=== PATIENT | male | born 1945 | race Caucasian/White ===

== ENCOUNTER 2019-09-11 11:49 | Observation (INO) | payer MEDICARE, OTHER, SELFPAY ==
[2019-09-11] VITALS (7 sets, daily range): BP systolic 115–185; BP diastolic 69–94; PULSE 74–104; RESP 15–18; TEMP 36.5–36.8; O2SAT 93–98; BMI 36.8
--- NOTE | 2019-09-11 12:12 | ED_ITS ---
HPI - Neuro Symptoms/Deficit General Chief Complaint: Neuro Symptoms/Deficit Stated Complaint: Blurry Vision, Left Side Facial and Hand Numbness Time Seen by Provider: 09/11/19 12:12 Source: patient Mode of arrival: Ambulatory Limitations: no limitations History of Present Illness HPI Narrative: 74-year-old gentleman with chronic atrial fibrillation anticoagulated on apixaban who is had a bypass surgery a number of years ago presents with 3 days of waxing and waning left facial and upper extremity weakness and numbness with left peripheral vision slightly blurry. No fever, cough, cold, chills, chest pain, dyspnea, orthopnea, headache, neurologic changes, falls or trauma. On Anticoagulants: Yes (eliquis) Related Data Home Medications Medication Instructions Recorded Confirmed ASPIRIN (#ASPIRIN) 325 mg PO Q DAY #0 11/07/10 apixaban [Eliquis] #0 07/07/16 Allergies Allergy/AdvReac Type Severity Reaction Status Date / Time No Known Drug Allergies Allergy Verified 09/11/19 12:34 Review of Systems Review of Systems Narrative: No vomiting, diarrhea, abdominal pain All systems reviewed and are unremarkable except as noted in HPI and below Patient History Surgical History (Updated 09/11/19 @ 12:21 by Hawa Diez MD) Hx of CABG (Acute) Social History Smoking Status: Former smoker Smoking Status: Former smoker Substance Use Type: does not use Exam Narrative Exam Narrative: General: Healthy appearing, in no acute distress. Able to give a complete and coherent history. Well-nourished well-developed HEENT: Moist mucous membranes, normal sclera with reactive pupils, Neck: No JVD, supple Respiratory: Lungs are clear to auscultation, no wheezing no rales no rhonchi. Full and symmetrical air movement Cardiac: Regular rate and rhythm no murmurs no bruits Abdomen: Soft nontender good bowel tones, no flank pain Skin: Warm and dry, no rashes Neurologic: Grossly neurologically intact with no obvious asymmetries or abnormalities at this time. Mild left-sided hemianopia blurriness Extremities: No trauma, well perfused Psych: Cooperative, appropriate insight and affect Initial Vital Signs Initial Vital Signs: Vital Signs Pulse Rate 104 H 09/11/19 12:00 Respiratory Rate 18 09/11/19 12:00 Blood Pressure 154/88 H 09/11/19 12:00 Pulse Oximetry 93 09/11/19 12:00 Course Orders Ordered: ED Orders 09/11/19 12:10 Complete Blood Count AUTO DIFF Stat Comprehensive Metabolic Panel Stat Partial Thromboplastin Time Stat Prothrombin Time INR Stat EKG-12 Lead Stat 09/11/19 12:23 CT Stroke Stat Sodium Chloride (Normal Saline 0.9%) 1,000 mls @ 150 mls/hr IV CONT RONEY Last Admin: 09/11/19 12:32 Dose: 150 mls/hr Documented by: INGA Vital Signs Vital signs: Vital Signs - 8 hr 09/11/19 12:00 09/11/19 12:09 Temperature 98.3 F Pulse Rate 104 H Respiratory Rate 18 Blood Pressure 154/88 H Pulse Oximetry 93 MDM - Neuro Symptoms/Deficit Medical Records Attestation: I reviewed the patient's medical records. Lab Data Attestation: I reviewed the patient's lab results. Result diagrams: 09/11/19 12:10 09/11/19 12:10 Labs: Lab Results 09/11/19 09/11/19 09/11/19 Range/Units 12:10 12:10 12:10 WBC 6.8 (4.5-11.0) X10^3/uL RBC 4.98 (4.5-5.9) X10^6/uL Hgb 14.9 (13.5-17.5) g/dL Hct 44.9 (41-53) % MCV 90.0 (80-100) fL MCH 29.9 (26-34) PG MCHC 33.2 (30-36) % RDW 15.6 H (11.6-14.8) % Plt Count 202 (150-400) X10^3/uL Neut % (Auto) 71.9 (50-75) % Lymph % (Auto) 15.3 L (25-40) % [place] % (Auto) 9.8 (3-14) % Eos % (Auto) 2.2 (2-4) % Baso % (Auto) 0.8 (0-2) % Neut # (Auto) 4900 (1470-6895) /uL Lymph # (Auto) 1000 L (0107-0301) /uL [place] # (Auto) 700 (0-900) /uL Eos # (Auto) 200 (0-450) /uL Baso # (Auto) 100 (0-100) /uL PT 14.3 H (10.1-12.7) SECONDS INR 1.3 (0.9-1.3) APTT 35 (26.4-36.2) SECONDS Sodium 140 (137-145) mmol/L Potassium 4.1 (3.4-5.1) mmol/L Chloride 104 (98-107) mmol/L Carbon Dioxide 25 (22-32) mmol/L BUN 24 H (9-20) mg/dL Creatinine 1.00 (0.66-1.25) mg/dL Estimated GFR > 60.0 (>60) mL/min BUN/Creatinine Ratio 24.0 H (6-22) Glucose 109 (80-110) mg/dL Calcium 10.0 (8.4-10.2) mg/dL Total Bilirubin 0.5 (0.2-1.3) mg/dL AST 38 (17-59) IU/L ALT 34 (<50) IU/L Alkaline Phosphatase 51 (38-126) U/L Total Protein 8.5 H (6.3-8.2) g/dL Albumin 4.9 (3.5-5.0) g/dL Globulin 3.6 (1.7-4.1) g/dL Albumin/Globulin Ratio 1.4 (1.0-2.8) Imaging Data CT scan - head: Radiologist's Impression: IMPRESSION: 1. Focal hypodense region within the occipital lobe which may represent a subacute or early chronic infarct. If further characterization is warranted, noncontrast MRI could be used to evaluate for increased restricted diffusion. 2. No other acute intracranial findings. 3. Findings likely associated with chronic microvascular ischemic changes and old lacunar infarcts. 4. Fluid filled mastoid air cells which may be associated with mastoiditis. This study fulfills neurological imaging criteria for inclusion or exclusion of acute stroke therapies based on available published neurological guidelines. Dictated by: Pati Carrillo M.D. on 09/11/2019 at 11:51 ECG Data Attestation: I personally reviewed and interpreted this ECG as follows: Interpretation: Atrial fibrillation at a rate of 75 Left axis deviation Q-waves inferiorly suggesting a prior infarct with no acute ischemic changes MDM Narrative Medical decision making narrative: 3-4 days of intermittent symptoms seeming like they are progressively getting worse which is what prompted his visit today. He had an episode this morning of significant left-sided facial numbness left arm numbness and mild weakness. Symptoms have but not involved speech nor lower extremities. He denies previous stroke or heart attack. Clearly has significant atherosclerotic disease if he has had bypass grafting previously 1317 case is reviewed with Dr. Ashley, hospitalist. Patient will be admitted for a occipital stroke involving. As he currently is on Eliquis and date of onset is not completely clear he is not a tPA candidate. We discussed CT a verses waiting till tomorrow to do an MR. Given the fact that his clinical exam does not suggest an acute large vessel occlusion will hold off on the CT a to avoid the excess radiation and wait for the MRI study tomorrow. Discharge Plan Departure Patient Disposition: Admitted As Inpatient Clinical Impression: Stroke Qualifiers: CVA mechanism: embolism Precerebral and cerebral artery: unspecified cerebral artery Qualified Code(s): I63.40 - Cerebral infarction due to embolism of unspecified cerebral artery Discharge Date/Time: 09/11/19 13:34 Referrals: Duke Russell MD [Primary Care Provider] - Admit Date/Time: 09/11/19 13:33 Admit Provider: Deb Ashley
--- NOTE | 2019-09-11 12:23 | DI.CT.S_ITS ---
PROCEDURE: CT STROKE INDICATIONS: Three days stuttering stroke symptoms, left-sided weakness TECHNIQUE: Noncontrast 4.5 mm thick angled axial sections acquired from the foramen magnum to the vertex, with coronal reformats. For radiation dose reduction, the following was used: automated exposure control, adjustment of mA and/or kV according to patient size. COMPARISON: None. FINDINGS: Image quality: Excellent. CSF spaces: Basal cisterns are patent. No extra-axial fluid collections. The ventricles are symmetric in size and shape. Brain: No intracranial bleeds or masses. There is cerebral volume loss for age, with resultant ventricular and sulcal prominence. There are periventricular and deep white matter chronic small vessel ischemic changes. A focal 11 mm hypodensity is present within the right occipital lobe (series 2/image 18). There is intracranial internal carotid artery atherosclerosis. Probable chronic appearing lacunar infarcts are present within the bilateral external capsules of the basal ganglia. Differential considerations include prominent perivascular spaces. Skull and face: Calvarium and visualized facial bones appear intact, without suspicious lesions. An arachnoid cyst is present within the right frontal bone. Sinuses: Mucosal thickening is present within the bilateral ethmoid air cells. Visualized sinuses are otherwise clear. Fluid is present within the bilateral mastoid air cells. IMPRESSION: 1. Focal hypodense region within the occipital lobe which may represent a subacute or early chronic infarct. If further characterization is warranted, noncontrast MRI could be used to evaluate for increased restricted diffusion. 2. No other acute intracranial findings. 3. Findings likely associated with chronic microvascular ischemic changes and old lacunar infarcts. 4. Fluid filled mastoid air cells which may be associated with mastoiditis. This study fulfills neurological imaging criteria for inclusion or exclusion of acute stroke therapies based on available published neurological guidelines. Dictated by: Pati Carrillo M.D. on 09/11/2019 at 11:51 Approved by: Pati Carrillo M.D. on 09/11/2019 at 11:56
[2019-09-11] MEDS: SODIUM CHLORIDE 0.9% 1,000 ML 150 ML IV ×2 (12:32→22:47)
[2019-09-11 12:44] LABS: Add Manual Diff / Slide Review NO; Basophils Absolute Auto 100 /uL (0-100); Basophils Percent Auto 0.8 % (0-2); Eosinophils Absolute Auto 200 /uL (0-450); Eosinophils Percent Auto 2.2 % (2-4); Hematocrit 44.9 % (41-53); Hemoglobin 14.9 g/dL (13.5-17.5); Lymphocytes Absolute Auto 1000 /uL (1100-4500); Lymphocytes Percent Auto 15.3 % (25-40); Mean Corpuscular HGB Conc 33.2 % (30-36); Mean Corpuscular Hemoglobin 29.9 PG (26-34); Monocytes Absolute Auto 700 /uL (0-900); Monocytes Percent Auto 9.8 % (3-14); Neutrophils Absolute Auto 4900 /uL (1500-7000); Neutrophils Percent Auto 71.9 % (50-75); Platelet Count 202 X10^3/uL (150-400); Red Blood Cell Count 4.98 X10^6/uL (4.5-5.9); Red Cell Distribution Width 15.6 % (11.6-14.8); White Blood Cell Count 6.8 X10^3/uL (4.5-11.0)
[2019-09-11 12:51] LABS: INR 1.3 (0.9-1.3); Prothrombin Time 14.3 SECONDS (10.1-12.7)
[2019-09-11 12:54] LABS: PTT Partial Thromboplastin Tim 35 SECONDS (26.4-36.2)
[2019-09-11 12:55] LABS: Alanine Aminotransferase 34 IU/L (<50); Albumin 4.9 g/dL (3.5-5.0); Albumin Globulin Ratio 1.4 (1.0-2.8); Alkaline Phosphatase 51 U/L (38-126); Aspartate Aminotransferase 38 IU/L (17-59); Bilirubin Total 0.5 mg/dL (0.2-1.3); Blood Urea Nitrogen 24 mg/dL (9-20); Carbon Dioxide 25 mmol/L (22-32); Chloride 104 mmol/L (98-107); Estimated Glomerular Filt Rate > 60.0 mL/min (>60); Globulin 3.6 g/dL (1.7-4.1); Glucose 109 mg/dL (80-110); HEMOLYSIS < 15 (0-50); Potassium 4.1 mmol/L (3.4-5.1); Sodium 140 mmol/L (137-145); Total Protein 8.5 g/dL (6.3-8.2)
--- NOTE | 2019-09-11 18:00 | PM.HP.1 ---
History of Present Illness History of Present Illness Date Patient Seen: 09/11/19 Time Patient Seen: 16:15 Chief complaint: Blurry Vision, Left Side Facial and Hand Numbness Narrative: Vasyl Starkey is a 74-year-old male who presented with a several-day history of visual changes in his left eye, facial numbness, weakness in his left arm with numbing of his fingers in his left arm, and dizziness. He states he 1st noticed it when he was assembling his gun that he could not see very well with his left eye. He did state that when he bev he became a little bit dizzy. He denies chest pain, shortness of breath, nausea, dysuria, or nausea or vomiting. Patient History Medical History (Updated 09/11/19 @ 18:07 by WOODY Richey) A-fib (Chronic) Anticoagulation adequate with anticoagulant therapy (Chronic) Atrial fibrillation, permanent (Chronic) Essential hypertension (Acute) Gout (Chronic) Hyperlipidemia (Chronic) Stroke (Acute) Surgical History Hx of CABG (Acute) Family & Social History Family History Sister CVA (cerebral vascular accident) Mother Cancer Father Myocardial infarction Brother Myocardial infarction Social History: household members spouse Prior Living Arrangements House Safety & Behavioral: Feels Safe in Current Yes Environment Been Physically Hurt or No Threatened By a Person Suicidal Ideation Description None Suicide Plan Description No Plan Tobacco & Substance use: Smoking Status Former smoker, quit 40 years ago alcohol intake never, quit 4 months ago Substance Use Type does not use Meds Home Medications and Allergies Home Medications Medication Instructions Recorded Confirmed Type allopurinol 300 mg PO DAILY 09/11/19 09/11/19 History apixaban [Eliquis] 5 mg PO BID 09/11/19 09/11/19 History atorvastatin 40 mg PO BEDTIME 09/11/19 09/11/19 History furosemide 20 mg PO 2XW 09/11/19 09/11/19 History metoprolol tartrate 25 mg PO BID 09/11/19 09/11/19 History fsbeymml-iuq-TZ-lycopen-lutein 1 tab PO DAILY 09/11/19 09/11/19 History [Centrum Silver Ultra Men's] ramipril 10 mg PO BID 09/11/19 09/11/19 History Allergies Allergy/AdvReac Type Severity Reaction Status Date / Time No Known Drug Allergies Allergy Verified 09/11/19 12:34 Review of Systems Review of Systems ROS: Yes All systems reviewed with the patient and are negative except as otherwise documented Exam Vital Signs (past 8 hours): - 09/11/19 12:00 09/11/19 12:09 09/11/19 13:40 Temperature 98.3 F Pulse Rate 104 H 74 Respiratory Rate 18 Blood Pressure 154/88 H Blood Pressure [Right Arm] 185/94 H Pulse Oximetry 93 97 09/11/19 15:55 Temperature 97.9 F Pulse Rate 77 Respiratory Rate 18 Blood Pressure 151/69 H Blood Pressure [Right Arm] Pulse Oximetry 98 Oxygen Delivery Method Room Air Narrative Exam Narrative: Gen: Alert, oriented, obese 74 y.o. male, sitting on the side of the bed HEENT: normocephalic, atraumatic, conjunctiva clear, sclera non-icteric, oral mucosa pink and moist Neck: supple, full ROM Resp: Lungs CTA, non-labored breathing CV: RRR, no murmur or rubs Abd: soft, non-tender, normoactive BTs Skin: no lesions or rashes, dry and intact Neuro: CN 2 through 11 normal and bilateral, Romberg negative Alert and oriented X 4 Extremities: moves all 4 extremities, is ambulatory, negative Pierre?s sign Psyche: normal mood and affect. Objective Labs Result Diagrams: 09/11/19 12:10 09/11/19 12:10 Labs: Laboratory Results - last 24 hr 09/11/19 09/11/19 09/11/19 12:10 12:10 12:10 WBC 6.8 RBC 4.98 Hgb 14.9 Hct 44.9 MCV 90.0 MCH 29.9 MCHC 33.2 RDW 15.6 H Plt Count 202 Neut % (Auto) 71.9 Lymph % (Auto) 15.3 L [place] % (Auto) 9.8 Eos % (Auto) 2.2 Baso % (Auto) 0.8 Neut # (Auto) 4900 Lymph # (Auto) 1000 L [place] # (Auto) 700 Eos # (Auto) 200 Baso # (Auto) 100 PT 14.3 H INR 1.3 APTT 35 Sodium 140 Potassium 4.1 Chloride 104 Carbon Dioxide 25 BUN 24 H Creatinine 1.00 Estimated GFR > 60.0 BUN/Creatinine Ratio 24.0 H Glucose 109 Calcium 10.0 Total Bilirubin 0.5 AST 38 ALT 34 Alkaline Phosphatase 51 Total Protein 8.5 H Albumin 4.9 Globulin 3.6 Albumin/Globulin Ratio 1.4 Assessment & Plan Assessment & Plan narrative: Vasyl Starkey does have an abnormality of his head CT indicating a hyperdensity of the right occipital lobe and atherosclerosis of his carotid. Patient will be monitored overnight and will undergo an MR/MRA of the head and neck. 1. Probable right occipital CVA -nursing swallow evaluation -neuro checks q.4 hours -cardiac telemetry -PT/OT evaluate and treat 2. Chronic atrial fibrillation likely permanent -continue home dose of apixaban 5 mg p.o. b.i.d. -ECG indicates right bundle branch block, atrial fibrillation. Unknown if RBBB is new however given past history of a CABG assuming this is a permanent finding. -Dr. Milan is his delivery aide and should be notified of his admission in the morning. 3. Essential hypertension with a current blood pressure of 151/69 -patient states he takes atenolol 50 mg p.o. b.i.d. however his med record indicates he is taking metoprolol 25 mg b.i.d.. This will need to be clarified with pharmacy in the morning. -he is written for labetalol 10 mg IV for SBP greater than 220, DBP greater than 120, and heart rate greater than 100 to allow for permissive hypertension to perfuse his brain. 4. Hyperlipidemia -continue home dose of atorvastatin 40 mg p.o. daily -fasting lipid panel in the morning FEN: IV saline line, cardiac diet, chemistries in the am Patient is placed into observation as his stay is not likely to exceed 2 midnights. VTE Prophylaxis: Patient will be maintained on his normal anticoagulation regimen Medications reconciled: Yes, beta-hilary will need to be clarified and confirmed with pharmacy in the morning Disposition: Probable discharge to home with outpatient follow-up Code Status: Full code Quality VTE Deep Vein Thrombosis/Pulmonary Embolism Present on Admission: No
--- NOTE | 2019-09-11 20:42 | DI.MRI.S_ITS ---
PROCEDURE: MR STROKE Pre- and post-contrast brain MRI, non-contrast brain MR angiogram, pre- and postcontrast neck MR angiogram INDICATIONS: Left-sided weakness. stroke TECHNIQUE: Brain: Noncontrast axial T1 spin echo, axial T2 fast spin echo, sagittal and axial FLAIR, coronal T2 fast spin echo, axial gradient echo, axial diffusion and ADC through the brain. After the administration of contrast, axial 3D VIBE of the cranial vasculature and brain. Brain MRA: Non-contrast 3-D time of flight MR angiogram, with multiple dnwifpg-ueddsoiel-jzwodqypcz (MIP) reformats performed. Neck MRA: Axial and sagittal TruFISP through the neck. Coronal dynamic MR angiogram during administration of contrast in the arterial and venous phases, with 3-dimenstional mmlhneu-pucitnzzd-oykzmsbfbc (MIP) reformats constructed from subtraction images. COMPARISON: [facility], CT, CT STROKE, 09/11/2019, 11:37. FINDINGS: Image quality: Limited by patient motion artifact. BRAIN: CSF spaces: Ventricles are normal in size and shape. Basal cisterns are patent. No extra-axial fluid collections. Brain: No intracranial bleeds or mass effects. Bob-white matter interface is normal. Restricted effusion and increased T2 signal noted in the right occipital lobe compatible with acute/subacute infarct. Brainstem appears normal. Normal intravascular flow voids are present. Dural sinuses demonstrate normal postcontrast enhancement. A few, scattered punctate foci of susceptibility artifact noted the cerebral hemispheres bilaterally which may represent sequela of remote hypertensive micro-bleeds versus amyloid angiopathy. No abnormal intracranial enhancement. Skull and face: Calvarial marrow signal is normal. Orbits appear normal. Sinuses: Mucosal thickening is noted in the frontal sinuses, the ethmoid air cells and the right maxillary sinus. Fluid signal noted in the mastoid air cells bilaterally. BRAIN MR ANGIOGRAM: Anterior circulation: Intracranial internal carotid arteries are normal in size and enhancement. The flow within the paired anterior cerebral arteries is normal and symmetric. The flow within the middle cerebral arteries is normal and symmetric. The anterior communicating artery is seen. No stenoses, occlusions, or aneurysms. Posterior circulation: Normal flow noted in the intracranial left vertebral artery. There is diminished flow in the intracranial right vertebral artery. Normal flow noted in the basilar artery. The flow within the posterior cerebral arteries is normal and symmetric. No stenoses, occlusions, or aneurysms. NECK MR ANGIOGRAM: Carotids: Great vessels demonstrate a bovine variant anatomy as they arise from the aortic arch. The origins of the common carotid arteries appear patent. The calibers and courses of both common carotid arteries are normal. Mild atherosclerotic irregularity noted in the proximal internal carotid arteries bilaterally which causes less than 50% stenosis of the vessels. Posterior circulation: Dr. cagle irregularity is noted in the origin of the right vertebral artery which causes high grade stenosis to near occlusion. There is diminished flow in the right vertebral artery distal to the origin of the vessel. Mild atherosclerotic irregularity causing mild stenosis of the origin of the left vertebral artery. Left vertebral artery is fully patent distal to the mild origin stenosis. Miscellaneous: Subclavian arteries appear patent. Pre-contrast images through the neck show no soft tissue abnormalities. IMPRESSION: BRAIN MRI: 1. Acute/subacute right occipital lobe infarct. 2. Mild diffuse cerebral volume loss. 4. No abnormal intracranial mass or suspicious postcontrast enhancement. BRAIN MR ANGIOGRAM: 1. Severely diminished to flow in the intracranial V4 segment of the right vertebral artery which could be due to severe atherosclerotic disease versus thrombus. 2. Otherwise, normal MR angiogram of the head. NECK MR ANGIOGRAM: 1. Less than 50% stenosis of the proximal internal carotid arteries bilaterally. 2. High-grade stenosis near occlusion of the origin of the right vertebral artery was very diminished flow distal to the origin stenosis. 3. Mild atherosclerotic stenosis of the origin of the left vertebral artery. Dictated by: Radha Lay MD, PhD on 09/12/2019 at 10:42 Approved by: Radha Lay MD, PhD on 09/12/2019 at 10:54
--- NOTE | 2019-09-11 20:43 | DI.ECHO.S_ITS ---
[facility] +---------+ : : [address] : [place] : : : : [id number] : : : : Phone: [phone] Echocardiogram Report + + :Name: SCOTT RAZA Study Date: 09/12/2019 Height: 67 in : :[facility] Weight: 235 lb : : Gender: Male BSA: 2.2 m2 : :: 1945 Age: 74 yrs BP: 138/80 mmHg: :Reason For Study: STROKE : :Ordering Physician: Bony : :Hospitalist Performed By: Adalgisa Fregoso : :Referring: SCOTT WATSON : + + Interpretation Summary Technically difficult study. The patient was in atrial fibrillation with heart rates between 82-101 bpm during the exam. Mild concentric left ventricular hypertrophy with ejection fraction 55-60%. Moderate biatrial enlargement. Mild aortic stenosis. Mild mitral annular calcification. Mild mitral regurgitation. Mildly enlarged ascending aorta. Comparison is made with the echocardiogram of 06/17/2016, aortic stenosis has progressed. Procedure: A two-dimensional transthoracic echocardiogram with color flow and Doppler was performed. The study quality was technically difficult. A contrast injection of Definity was performed to improve assessment of LV function. Comparison is made with the echocardiogram of 06/17/2016. Definity contrast was used after patient education and consent. Patient denied any symptoms after the use of Definity contrast. The patient was in atrial fibrillation with heart rates between 82-101 bpm during the exam. Left Ventricle: The left ventricle is normal in size. There is mild concentric left ventricular hypertrophy. The ejection fraction is estimated to be 55-60%. There are no obvious focal wall motion abnormalities noted but poor endocardial definition reduces the sensitivity for the detection of such. Diastolic function could not be accurately assessed due to atrial fibrillation. Right Ventricle: The right ventricle is normal in size and function. Atria: There is moderate biatrial enlargement. There is no Doppler evidence for an interatrial shunt. Mitral Valve: There is mild mitral annular calcification. The mitral valve leaflets appear mildly thickened, but open well. There is mild mitral regurgitation. Aortic Valve: The aortic valve is trileaflet. The aortic valve is mildly calcified. There is mild aortic stenosis. No aortic regurgitation is present. Tricuspid Valve: The tricuspid valve is not well visualized, but is grossly normal. There is a trace or physiologic amount of tricuspid regurgitation. Pulmonary artery pressures cannot be estimated because of the lack of a measurable TR jet velocity but the IVC suggests a CVP of around 3 mmHg. Pulmonic Valve: The pulmonic valve is not well seen, but is grossly normal. There is no pulmonic valvular regurgitation. Great Vessels: The aortic root is normal size. The ascending aorta is mildly enlarged. The IVC is of normal diameter and collapses greater than 50% with a sniff. This suggests a low right atrial pressure of 3 mm Hg. Pericardium/ Pleura There is no pericardial effusion. There is no pleural effusion. MMode/2D Measurements & Calculations LVIDd: 5.0 cm LVOT diam: 2.6 cm LVIDs: 3.7 cm Ao root diam: 3.2 cm FS: 26.2 % asc Aorta Diam: 3.5 cm EPSS: 1.5 cm Ao Arch Diam (Prox Trans): 2.8 cm IVSd: 1.1 cm LVPWd: 1.3 cm LV nunes. diameter/BSA (cm/m^2): 2.3 LV sys. diameter/BSA (cm/m^2): 1.7 LA A2 area: 27.9 cm2 RA long axis: 6.9 cm LA A4 area: 29.5 cm2 RA area: 29.4 cm2 LA length (vol): 7.2 cm RA vol: 107.0 ml LA vol: 97.1 ml RA : 49.4 ml/m2 LA vol index: 44.8 ml/m2 IVC diam: 0.93 cm RVD1 (basal): 3.1 cm TAPSE: 2.0 cm Doppler Measurements & Calculations Ao V2 max: 219.4 cm/sec LVOT Max Anthony: 91.1 cm/sec Ao V2 mean: 158.9 cm/sec LV V1 max P.3 mmHg Ao max P.3 mmHg LV V1 VTI: 15.8 cm Ao mean P.1 mmHg JOSE(I,D): 2.1 cm2 Ao V2 VTI: 40.6 cm JOSE(V,D): 2.2 cm2 sev ratio: 0.39 JOSE indexed to BSA (cm^2/m^2): 0.96 MV E max anthony: 129.7 cm/sec PA V2 max: 106.1 cm/sec MV A max anthony: 1.9 cm/sec PA V2 mean: 76.2 cm/sec MV E/A: 67.0 PA mean P.5 mmHg Med Peak E' Anthony: 6.2 cm/sec PA Accel Time: 0.05 sec E/E' med: 20.9 Lat Peak E' Anthony: 11.1 cm/sec E/E' lat: 11.7 E/e' average: 16.3 MV dec time: 0.18 sec MV P1/2t: 49.0 msec MV 2t max anthony: 137.9 cm/sec SV(LVOT): 84.4 ml MVA(2t): 4.5 cm2 Electronically signed by: Sun Guy on Reading Physician:09/12/2019 03:17 PM
[2019-09-11] MEDS: ATORVASTATIN 20 MG TABLET 40 MG PO (22:09)
[2019-09-11] MEDS: APIXABAN 5 MG TABLET PO (22:09)
[2019-09-12 00:05] VITALS: BP 138/80; PULSE 69; RESP 18; TEMP 36.5; O2SAT 97
[2019-09-12 05:00] VITALS: BP 146/87; PULSE 76; RESP 16; TEMP 36.2; O2SAT 97
[2019-09-12 06:16] LABS: Add Manual Diff / Slide Review NO; Basophils Absolute Auto 0 /uL (0-100); Basophils Percent Auto 0.6 % (0-2); Eosinophils Absolute Auto 300 /uL (0-450); Eosinophils Percent Auto 4.1 % (2-4); Hematocrit 40.5 % (41-53); Hemoglobin 13.3 g/dL (13.5-17.5); Lymphocytes Absolute Auto 1400 /uL (1100-4500); Lymphocytes Percent Auto 22.6 % (25-40); Mean Corpuscular HGB Conc 32.9 % (30-36); Mean Corpuscular Hemoglobin 29.5 PG (26-34); Mean Corpuscular Volume 89.7 fL (80-100); Monocytes Absolute Auto 700 /uL (0-900); Monocytes Percent Auto 11.5 % (3-14); Neutrophils Absolute Auto 3700 /uL (1500-7000); Neutrophils Percent Auto 61.2 % (50-75); Platelet Count 165 X10^3/uL (150-400); Red Blood Cell Count 4.51 X10^6/uL (4.5-5.9); Red Cell Distribution Width 15.8 % (11.6-14.8); White Blood Cell Count 6.1 X10^3/uL (4.5-11.0)
[2019-09-12 06:27] LABS: BUN Creatinine Ratio 17.8 (6-22); Blood Urea Nitrogen 16 mg/dL (9-20); Calcium 9.1 mg/dL (8.4-10.2); Carbon Dioxide 23 mmol/L (22-32); Chloride 108 mmol/L (98-107); Cholesterol 120 mg/dL (140-199); Estimated Glomerular Filt Rate > 60.0 mL/min (>60); Glucose 108 mg/dL (80-110); HDL Cholesterol 42 mg/dL (40-60); HEMOLYSIS < 15 (0-50); LDL Cholesterol Calculated 60 mg/dL (<100); Potassium 3.9 mmol/L (3.4-5.1); Sodium 139 mmol/L (137-145); Triglycerides 89 mg/dL (35-150)
--- NOTE | 2019-09-12 06:51 | PC.NURSE ---
Patient has NIH of 0 on this shift. Patient VSS, patient on tele: Afib w/ BBB. Patient Neuro checks WNL. Patient is TELLER. Bed is low and locked, call light within reach, refused SCD's and bed alarm activated.
[2019-09-12 07:39] VITALS: O2SAT 98
[2019-09-12 07:40] VITALS: BP 152/97; PULSE 96; RESP 18; TEMP 36.3; O2SAT 98
[2019-09-12] MEDS: APIXABAN 5 MG TABLET PO (08:04)
[2019-09-12] MEDS: ramipriL 5 MG CAPSULE 10 MG PO (08:04)
--- NOTE | 2019-09-12 08:12 | PC.NURSE ---
Addendum entered by Marlen Willoughby R.N. 09/12/19 13:28: Spoke with Dr Mckenna (who states he will be the one coming back to see patient), informed him that MRI and ECHO have both been completed. Addendum entered by Marlen Willoughby R.N. 09/12/19 12:17: ECHO being done at this time. Plan to alert Dr Ashley when all imaging results available. Addendum entered by Marlen Willoughby R.N. 09/12/19 11:29: Has been cleared by PT to ambulate independently Addendum entered by Marlen Willoughby R.N. 09/12/19 11:26: Back to room from MRI. OT in for eval at this time. Anticipate ECHO any time now, will replace tele after ECHO. Addendum entered by Marlen Willoughby R.N. 09/12/19 10:44: Off floor to MRI at 1035, taken via wheelchair. Addendum entered by Marlen Willoughby R.N. 09/12/19 09:29: Per DI: MRI approx 1030 today, ECHO approx 1100 (subject to change of course). Informed patient of the same. SENIOR PROGRAMMER in for stroke protocol eval. at this time. Original Note: Shift summary: Awake and alert, oriented X3. Denies paresthesias, chest pain/palpitations or SOB. NIH score=0. Neuro checks WNL. Speech clear. Vision and hearing difficulties patient reports not new, does not have glasses or hearing aids. VSS. Lungs CTA. HR irregular, A-fib per tele reading. Patient at edge of bed awaiting breakfast, kind of anxious to go home. Able to make needs known and calls appropriately. Light and belongings within reach, bed alarm on.
--- NOTE | 2019-09-12 08:53 | CM.DANOTE ---
DCP: Case received, EMR reviewed and met with patient. Introduced self and role. Was able to meet with patient in his room to obtain information regarding baseline activity, health, and living situation. DCP assessment completed with information currently available. Patient is a 74 year old male who admitted yesterday afternoon to the care of the hospitalist team. PCP: Dr. Russell. Payer: confirmed: Medicare/[employer]. Patient came to the hospital via private vehicle secondary to left sided facial numbness, blurry vision, and tingling to left hand. Patient holds diagnosis of possible right occipital CVA, but will be having an MRI to confirm this as well. Met with patient in his room. He had been sitting up on the side of his bed talking on the phone, and finished his breakfast. Patient is alert and oriented. He stated that he had numbness in his hand, and had been feeling dizzy for the past couple of days. Confirmed that patient is independent, drives at baseline, and uses no DME supplies. He resides in [place] with his spouse, Saskia. Patient is wanting to go home as soon as he can. He is to be having an MRI today. P: DCP to continue to follow closely. Patient should be able to go home when he is medically stable and testing is complete. Kaycee Dykes RN/Smoke Eater
--- NOTE | 2019-09-12 10:33 | ST.IPSLE ---
Visit Care Team Role Provider Type Duke Russell MD Primary Care Provider Physician Specialty: Internal Medicine Address: [address] [place] [address], [id number] Email: [email or web address] Hawa Diez MD Emergency Provider Physician Specialty: Emergency Medicine Address: [address] [place] [address], [id number] Email: Deb Ashley MD Admit Provider Physician Attending Provider Referring Provider Specialty: Internal Medicine Address: [address] [place] [address], [id number] Email: [email or web address] Past Medical History (Last Updated 09/11/19 @ 18:07 by WOODY Richey) A-fib (Chronic Medical) Anticoagulation adequate with anticoagulant therapy (Chronic Medical) Atrial fibrillation, permanent (Chronic Medical) Essential hypertension (Acute Medical) Gout (Chronic Medical) Hyperlipidemia (Chronic Medical) Stroke (Acute Medical) Speech-Language Pathology Speech/Language Eval PRIME MINISTER Language Evaluation Start: 09/12/19 09:46 Freq: Status: Active Protocol: Document 09/12/19 09:51 LL (Rec: 09/12/19 10:32 LL [id number]) Language Evaluation Session Time Visit Start Time 09:20 Visit Stop Time 09:35 Total Visit Minutes 15 Referral Referring Physician WOODY Richey Reason for Referral Stroke Language Evaluation Assessment Type Comprehensive Speech-Language Evaluation Past Medical History Patient History Per Rosalie MaciassWOODY report, patient is a 74-year-old male who presented with a several- day history of visual changes in his left eye, facial numbness, weakness in his left arm with numbing of his fingers in his left arm, and dizziness. He states he 1st noticed it when he was assembling his gun that he could not see very well with his left eye. A-fib (Chronic) Anticoagulation adequate with anticoagulant therapy (Chronic ) Atrial fibrillation, permanent (Chronic) Essential hypertension (Acute) Gout (Chronic) Hyperlipidemia (Chronic) Stroke (Acute) Hearing Hearing Level Normal Vision Vision Status Impaired Comments Visual changes in his left eye - improving; wears glasses [place] Language Language(s) Spoken in the Home Hebrew Occupational Status Occupation Status Retired Oral Motor Examination Oral Motor Exam Completed Yes Results Patient presented within normal limits on oral mechanism examination. Patient wears full dentures/implants and reported no difficulty eating or communicating with dentures/implants in. Patient' s nurseMarlen reported no swallowing difficulties. Patient is currently on a heart healthy/cardiac diet with thin liquids. Patient reported that he had eggs, coffee, and chocolate milk for breakfast and experienced no difficulty eating/drinking. Patient consumed thin water by straw (small sip, consecutive sips in the upright position- jonelle swallow protocol) with no overt s/sx of aspiration. Subjective Subjective Patient seen in room for a speech and language evaluation . Patient was alert and oriented x4. Patient reported no difficulty with swallowing, expressive/receptive language , articulation, and/or cognition. Patient is very eager to return home. - Informal Assessment Receptive Language Normal Yes Expressive Language Normal Yes Articulation Normal Yes Cognition Normal Yes Assessment Findings Patient presents with no expressive/receptive language, swallowing, articulation, or cognitive deficits/impairments . - Receptive Language Yes/No Questions Skill Level WNL Comments simple and complex Following Directions - Verbal Skill Level WNL Comments 1-3 step directions/commands Following Directions - Written Skill Level Not assessed - unable to see well without reading glasses Defining Words Comments Not assessed Auditory Comprehension Skill Level WNL Reading Comprehension Comments Not assessed - unable to see well without reading glasses Receptive Language Comments Receptive Language Comments Patient and nurseMarlen reported no receptive language impairments/deficits. No impairments/deficits found during comprehensive assessment. - Expressive Language Automatic Speech Skill Level WNL Comments counting 1-20, ABCs, NAOMY, MANNY Sentence Closure Skill Level WNL Object Naming Skill Level WNL Stating Functions Skill Level WNL Oral Expression Skill Level WNL Written Expression Skill Level WNL Expressive Language Comments Expressive Language Comments Patient and nurseMarlen reported no expressive language impairments/deficits. No impairments/deficits found during comprehensive assessment. - Findings Language Findings Patient presents within normal limits on oral mechanism examination, jonelle swallow protocol- swallowing abilities , receptive/expressive language, articulation, and cognitive skills/abilities. Recommendations Recommendations It is recommended that patient be discharged from further speech therapy services at this time. It is recommended that patient continue with heart healthy/cardiac diet with thin liquids while sitting upright (90 degrees) during meals.
--- NOTE | 2019-09-12 10:40 | PT.IIE ---
Surgical History (Last Reviewed 09/11/19 @ 18:06 by WOODY Richey) Hx of CABG (Acute) Medical History (Last Updated 09/11/19 @ 18:07 by WOODY Richey) A-fib (Chronic) Anticoagulation adequate with anticoagulant therapy (Chronic) Atrial fibrillation, permanent (Chronic) Essential hypertension (Acute) Gout (Chronic) Hyperlipidemia (Chronic) Stroke (Acute) Physical Therapy Inpatient Evaluation/Re-Eval M1 PT/OT-IP Prior Functional Status Start: 09/12/19 08:38 Freq: NEEDED Status: Active Protocol: Document 09/12/19 10:15 AW (Rec: 09/12/19 10:39 AW [email or web address]) Medical Review Prior Functional Status Medical History Reviewed Yes Diet/Fluid Consistency Regular Communication WNL Mobility and Gait Independent without assistive device. Pt walks 1.5-2 miles daily. Activities of Daily Living and IADL's Independent Prior Functional Level (Other details) Pt lives with his , Saskia. He drives and participates in household activities without restriction. Social History Household Members spouse Living Arrangements House Number of Floors (Floors) Two Floors Number of Stairs To Enter/Railing? 4 CHER through garage with L rail ascending. 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 M2 PT-IP Current Condition Start: 09/12/19 08:38 Freq: NEEDED Status: Active Protocol: Document 09/12/19 10:15 AW (Rec: 09/12/19 10:39 AW [email or web address]) Physical Therapy Current Condition Current Condition Evaluation Date 09/12/19 Treatment Diagnosis occipital lobe CVA Onset Date 09/11/19 M3 PT-IP Subjective Start: 09/12/19 08:38 Freq: NEEDED Status: Active Protocol: Document 09/12/19 10:15 AW (Rec: 09/12/19 10:39 AW [email or web address]) Subjective Physical Therapy Visit Type Type Initial Evaluation Visit Start Time 09:35 Visit Stop Time 09:59 Total Visit Minutes 24 Physical Therapy Visit Comments Patient Comments Pt is begrudgingly willing to participate with therapy. He is ready to go home Patient Goals To return home Therapy Pain Assessment Pain When Pain Assessed During Mobility Pain Present Pain Present Denied Pain M4 PT-IP Mobility and Gait Start: 09/12/19 08:38 Freq: NEEDED Status: Active Protocol: Document 09/12/19 10:15 AW (Rec: 09/12/19 10:39 AW [id number]) PT-Bed Mobility Assessment Supine to Sit Supine to Sit Independent Scooting Scooting to Edge of Bed Independent Scooting Up and Down in Bed Independent PT-Transfer Assessment Sit to and From Stand Sit to and from Stand Independent,Use of Upper Extremities Equipment Transfer Assistive Device Gait Belt Orthotic/Prosthetic Devices or Brace: No Transfers Transfer Destination Bed,Chair Transfer Technique pt ambulated independently Transfer Ability Level of Assist Independent Comments Mobility Comments Pt completed supine to sit transfer independent and sat EOB for coordination and strength testing with good seated balance. He stood without AD, walked the halls for gait assessment, and returned to sit independently at first on the bed and then on the chair. Gait Assessment Gait Gait Assistance Required: Standby Assistance Distance (Feet) 250 Assistive Devices Assistive Device Gait Belt Gait Deviations General Gait Pattern Decreased Feet Clearance,Wide Based Gait Factors Limiting Gait Function Factors Limiting Gait Function Poor Safety Awareness Comments Gait Comments Pt ambulated in the halls requiring SBA for modified, 4- item DGI on which he scored 12 /12 indicating low risk of falls. He was able to perform vertical and horizontal head turns as well as significant changes in gait speed safely with SBA. Stair Climbing Assessment Evaluation Level of Assist On Stairs Independent Devices Stair Climbing Assistive Devices Left Railing,Right Railing Technique/Endurance Stair Climbing Direction Ascend and Descend Stair Climbing Technique Step Over Step,Step to Step Number of Steps Climbed 3 Query Text: Stair Climbing Set # Repetitions (reps) 3 Comments Stair Climbing Comments Pt ascended step over step and descended step-to, citing chronic knee problems making descent more challenging. PT-Balance Assessment Sitting Balance and Reactions Static Sitting Balance Ability Normal Dynamic Sitting Balance Ability Normal Standing Balance and Reactions Static Standing Balance Ability Normal Dynamic Standing Balance Ability Good Device Used none Functional Assessments Functional Tests Dynamic Gait Index mDGI 12/12 M5 PT-IP Objective Assessments Start: 09/12/19 08:38 Freq: NEEDED Status: Active Protocol: Document 09/12/19 10:15 AW (Rec: 09/12/19 10:39 [id number]) Orientation Orientation/Cognition Level of Alertness Alert Orientation Name,Age,Birthday,Month,Day of Week,Place,Situation Language Function Ability No Deficits Noted,Hard of Hearing Safety Awareness Decreased Safety Awareness Memory Description No Deficits Noted Comments Pt was able to recall three words (apple, table, jaimee) without prompt after five minutes of unrelated conversation. Gross Range of Motion Upper Extremity ROM Assessment Within Functional Limits Lower Extremity ROM Assessment Within Functional Limits Strength Upper Extremity Strength Assessment Within Functional Limits Lower Extremity Strength Assessment Within Functional Limits Comments Strength Comments BLE and BUE grossly 5/5 and symmetrical Coordination Assessment Gross Coordination Gross Coordination WNL Assessment Finger to Nose Test Normal Performance Pronation/Supination Test Normal Performance Coordination Comments Negative pronator drift. Good performance on finger to nose with eyes closed. Sensation Assessment Sensation Gross Sensation WNL Comments Sensation Comments Pt reported LUE numbness yesterday but that it has resolved and he has return of normal sensation Muscle Tone Muscle Tone WNL Yes Other Assessments Other Other Assessments No impairment to visual cole , no resting or gaze-evoked nystagmus. Occulomotor exam is normal with good tracking and convergence. M6 PT-IP Treatment Start: 09/12/19 08:38 Freq: NEEDED Status: Active Protocol: Document 09/12/19 10:15 AW (Rec: 09/12/19 10:39 [email or web address]) Physical Therapy Treatment Education Education Provided Precautions,Safety Other Treatments Other Treatment Performed Provided education on role of PT, plan of care, and symptoms of CVA for pt and family awareness. M7 PT-IP Assessment and Plan Start: 09/12/19 08:38 Freq: NEEDED Status: Active Protocol: Document 09/12/19 10:15 AW (Rec: 09/12/19 10:39 [email or web address]) PT Summary Assessment and Plan Potential Rehabilitation Potential Excellent Status of Condition at Evaluation Stable Summary Impairments Gait Assessment Summary Vasyl is a 74 yo active man seen for PT evaluation one day after admittance with left UE weakness and numbness and blurriness of left peripheral vision. Head CT report indicates Focal hypodense region within the occipital lobe which may represent a subacute or early chronic infarct. He is to undergo MRI today. At baseline, pt is active and independent without assistive device. On evaluation, occulomotor and vestibular exam are normal without resting or gaze-evoked nystagmus. Visual cole were intact on exam. Pt scored 12/ 12 on modified Dynamic Gait Index indicating low risk of falls and further clearing vestibular involvement. Pt states dizziness has abated since onset of symptoms yesterday. PT will continue to follow if pt remains admitted . If pt discharges today, he is deemed safe to go home with assist. Goals Gait Goal Independent Gait Distance 500 Other Goals 28/30 or better on Functional Gait Assessment Days to Meet Goals 1 Frequency of Treatment Frequency Of Treatment Once a Day Treatment Plan Physical Therapy Treatment Plan Gait Training,Balance Retraining,Discharge Planning, Neuromuscular Re-ed Other Recommendations and Next Treatment FGA, re-assess visual cole Focus Recommendations To Nursing Amount of Assist Needed Independent Discharge Recommendations PT Discharge Recommendations Home,Home with Assistance Transportation Needs at Discharge Private Vehicle
--- NOTE | 2019-09-12 11:42 | OT.IP.EVAL ---
Past Medical History (Last Updated 09/11/19 @ 18:07 by WOODY Richey) A-fib (Chronic) Anticoagulation adequate with anticoagulant therapy (Chronic) Atrial fibrillation, permanent (Chronic) Essential hypertension (Acute) Gout (Chronic) Hyperlipidemia (Chronic) Stroke (Acute) Surgical History (Last Reviewed 09/11/19 @ 18:06 by WOODY Richey) Hx of CABG (Acute) Occupational Therapy Inpatient Evaluation/Re-Eval M1 PT/OT-IP Prior Functional Status Start: 09/12/19 15:34 Freq: NEEDED Status: Active Protocol: Document 09/12/19 14:48 [facility] (Rec: 09/12/19 15:54 [facility] [id number]) Medical Review Prior Functional Status Medical History Reviewed Yes Diet/Fluid Consistency Regular Communication WNL Mobility and Gait Independent without assistive device. Pt walks 1.5-2 miles daily. Activities of Daily Living and IADL's Independent Prior Functional Level (Other details) Pt lives with his , Saskia. He drives and participates in household activities without restriction. Social History Household Members spouse Living Arrangements House Number of Floors (Floors) Two Floors Number of Stairs To Enter/Railing? 4 CHER through garage with L rail ascending. 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 M2 OT-IP Current Condition Start: 09/12/19 15:55 Freq: Status: Active Protocol: Document 09/12/19 14:48 [facility] (Rec: 09/12/19 15:54 [facility] [id number]) Occupational Therapy Current Condition Current Condition Evaluation Date 09/12/19 Treatment Diagnosis Acute /subacute right occipital lobe infarct Diagnosis Onset Date 09/11/19 Weight Bearing Status Weight Bearing Status Weight Bear as Tolerated M3 OT- IP Subjective and Pain Start: 09/12/19 15:55 Freq: Status: Active Protocol: Document 09/12/19 14:48 [facility] (Rec: 09/12/19 15:54 [facility] [id number]) OT- Subjective Occupational Therapy Visit Type Type Initial Evaluation Visit Start Time 11:27 Visit Stop Time 11:42 Total Visit Minutes 15 Occupational Therapy Visit Comments Patient Comments Pt a bit agitated, and wanting to go home. After encouragement from his agreed to do OT eval. Patient/Caregiver Goals To go home rob. OT Pain Assessment Pain When Pain Assessed At Rest Pain Present Pain Present Denied Pain M4 OT- IP ADL's Start: 09/12/19 15:55 Freq: Status: Active Protocol: Document 09/12/19 14:48 [facility] (Rec: 09/12/19 15:54 [facility] [id number]) OT [id number] Comments OT Self-Feeding Comments Not at meal time. OT ADL-Grooming Comments OT Grooming Comments Pt states completed already. OT ADL-Dressing General Eval Upper Body Dressing Ability Independent Lower Body Dressing Ability Independent Comments OT Dressing Comments Pt just stepping out of the bathroom from getting dressed on his own. OT ADL-Toileting General Evaluation Toileting Ability Independent OT ADL-Bathing Comments OT Bathing Comments Not performed, suggested for to be present initially when showering. 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 M6 OT- IP Functional Cognition Start: 09/12/19 15:55 Freq: Status: Active Protocol: Document 09/12/19 14:48 [facility] (Rec: 09/12/19 15:54 [facility] [id number]) Cognitive Factors Limiting Selfcare Function Cognitive Ability Level of Alertness Alert Patient Orientation Name,Place,Situation Attention Span Ability Capable of Focused Attention, Capable of Sustained Attention Ability to Follow Commands Able to Follow Multi-Step Commands Memory Description Short Term Impaired Safety Awareness Underestimates Need for Assistance Problem Solving Ability Needs Assist to Identify Solutions Executive Function Ability Unable to Remember Details Cognitive Comments Cognitive Assessment Comments Pt able to follow 1-2 step commands. Pt having difficulty to comprehend directions for Friona Making B and needing multiple cues and examples before finally understanding the directions. Pt scored 154 seconds on Friona making Part b which implied signifcant impairment with mental flexibility, visual attention, speed of process, and for executive thinking. Normal score is 85 seconds of less. It was strongly recommended that pt not drive at this time , pt very upset, but appears to have good understanding as trying to calm pt down as he was getting frustrated in having difficulty to find the numbers and letters during the assessment. Maze Test completed and able to complete with no issues which tests for attention, visuoconstructional ability and executive functions of planning and foresight. OT- Vision and Hearing OT- Hearing Assessment OT- Hearing Assessment WFL OT- Vision Assessment Visual Acuity WFL,Glasses For Reading Visual Attentiveness WFL Occular Pursuits WFL Visual Convergence WFL Visual Enciso WFL M7 OT- IP Mobility and Balance Start: 09/12/19 15:55 Freq: Status: Active Protocol: Document 09/12/19 14:48 [facility] (Rec: 09/12/19 15:54 [facility] [id number]) OT-Transfer Assessment Sit to and From Stand Sit to and from Stand Independent Transfers Transfer Ability Independent Comments Mobility Comments Pt independently walking around i nthe room. OT- Balance Assessment Sitting Balance and Reactions Static Sitting Balance Ability Normal Dynamic Sitting Balance Ability Normal Standing Balance and Reactions Static Standing Balance Ability Normal M8 OT- IP Objective Assessments Start: 09/12/19 15:55 Freq: Status: Active Protocol: Document 09/12/19 14:48 [facility] (Rec: 09/12/19 15:54 [facility] [id number]) OT Gross Range of Motion Upper Extremity Range of Motion Assessment Within Functional Limits OT Strength Upper Extremity Strength Assessment Within Functional Limits OT- Coordination Assessment Comments Coordination Comments Pt able to do maze appropriately. OT-Muscle Tone Assessment Muscle Tone WNL Yes M9 OT- IP Assessment and Plan Start: 09/12/19 15:55 Freq: Status: Active Protocol: Document 09/12/19 14:48 [facility] (Rec: 09/12/19 15:54 [facility] [id number]) OT Summary Assessment and Plan Potential Rehabilitation Potential Good Analytic Complexity at Evaluation Low Summary OT Impairments Functional Mobility Progress Towards Goals Slow Progress due to Cognition Assessment Summary Pt low complexity and main barrier are decreased higher level executive functioning and problem solving. At this time, recommended to not drive Pending if pt clears cognitively, may benefit from outpt OT or ASSEMBLING FABRICATOR. Pt has a supportive who can assist at home. Goals Patient/Caregiver Education Goal Caregiver Independent Assisting Patient OT-Other Goals Perform Friona Making B under 85 secs. Complete ACL. Days to Meet Goals 2 Frequency of Treatment Frequency Of Treatment Once a Day Treatment Plan OT Treatment Plan Functional Cognition Training, Patient/Family Education, Discharge Planning Other Treatment Recommendations and Next ACL, redo Friona Making Part B Treatment Focus Discharge Recommendations OT Discharge Recommendations Home with Assistance Transportation Needs at Discharge Private Vehicle
[2019-09-12 12:00] VITALS: BP 147/86; PULSE 104; RESP 18; TEMP 36.3; O2SAT 97
--- NOTE | 2019-09-12 14:48 | P.DS_ITS ---
History of Present Illness History of Present Illness Chief complaint: Blurry Vision, Left Side Facial and Hand Numbness Narrative: Vasyl Starkey is a 74-year-old male who presented with a several-day history of visual changes in his left eye, facial numbness, weakness in his left arm with numbing of his fingers in his left arm, and dizziness. He states he 1st noticed it when he was assembling his gun that he could not see very well with his left eye. He did state that when he bev he became a little bit dizzy. He denies chest pain, shortness of breath, nausea, dysuria, or nausea or vomiting. Discharge Providers Provider Date of admission: 09/11/19 13:33 Discharge Date: 09/12/19 Primary care physician: Duke Russell MD Consults: 09/11/19 16:40 Consult to Discharge Planning Routine Comment: Consult to Occupational Therapy Evaluate & Treat Comment: Physician Instructions: Evaluate and treat Consult to Physical Therapy Evaluate & Treat Comment: Physician Instructions: Evaluate and Treat Consult to Speech Therapy Evaluate & Treat Comment: Physician Instructions: Evaluate and treat 09/12/19 10:42 Consult to Speech Therapy Evaluate & Treat Comment: Physician Instructions: Evaluate and treat Discharge provider: Fritz Mckenna MD Summary Hospital Course Discharge Diagnosis: 1. Acute right occipital CVA 2. 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 Acute/subacute right occipital lobe infarct. 2. Mild diffuse cerebral volume loss. 4. No abnormal intracranial mass or suspicious postcontrast enhancement. BRAIN MR ANGIOGRAM: 1. Severely diminished to flow in the intracranial V4 segment of the right vertebral artery which could be due to severe atherosclerotic disease versus thrombus. 2. Otherwise, normal MR angiogram of the head. NECK MR ANGIOGRAM: 1. Less than 50% stenosis of the proximal internal carotid arteries bilaterally. 2. High-grade stenosis near occlusion of the origin of the right vertebral artery was very diminished flow distal to the origin stenosis. 3. Mild atherosclerotic stenosis of the origin of the left vertebral artery. Hospital Course: Patient was admitted with acute stroke symptoms of left eye blurry vision and paresthesias of the left face and left upper extremity. He had complete resolution of all presenting symptoms. Brain MRI confirmed acute right occipital CVA. Also noted was high-grade stenosis versus thrombus of the origin of the right vertebral artery. There was less than 50% narrowing of bilateral carotid arteries. Transthoracic echo report pending at time of discharge and patient will follow-up with PCP on the echo report. Patient has chronic AFib and on Eliquis anticoagulation. We added 81 mg daily aspirin to his regimen due to concern his CVA is more ischemic related to the right vertebral artery thrombus or stenosis. Blood pressure was moderately high on admit and trending down. Cholesterol is well controlled on atorvastatin 40 mg with LDL 60. Patient is advised of increased bleeding risk on 2 blood thinners and to avoid activities with risk of injury such as getting up on ladders where he may fall and hit his head. Also instructed to avoid aspirin type pain relievers but okay to take Tylenol. He will follow-up with PCP Dr. Russell within 1 week. Status at Discharge Cognitive/behavioral status at discharge: oriented Functional status at discharge: independent ambulation Overall status at discharge: patient is back to baseline Time Spent with Patient Time spent: Less than 30 minutes Exam Vital Signs (past 8 hours): - 09/12/19 07:39 09/12/19 07:40 09/12/19 12:00 Temperature 97.3 F L 97.4 F L Pulse Rate 96 H 104 H Respiratory Rate 18 18 Blood Pressure 152/97 H 147/86 H Pulse Oximetry 98 98 97 Oxygen Delivery Method Room Air Oxygen Flow Rate 0 Objective Labs Result Diagrams: 09/12/19 05:47 09/12/19 05:47 Labs: Laboratory Results - last 24 hr 09/12/19 09/12/19 05:47 05:47 WBC 6.1 RBC 4.51 Hgb 13.3 L Hct 40.5 L MCV 89.7 MCH 29.5 MCHC 32.9 RDW 15.8 H Plt Count 165 Neut % (Auto) 61.2 Lymph % (Auto) 22.6 L [place] % (Auto) 11.5 Eos % (Auto) 4.1 H Baso % (Auto) 0.6 Neut # (Auto) 3700 Lymph # (Auto) 1400 [place] # (Auto) 700 Eos # (Auto) 300 Baso # (Auto) 0 Sodium 139 Potassium 3.9 Chloride 108 H Carbon Dioxide 23 BUN 16 Creatinine 0.90 Estimated GFR > 60.0 BUN/Creatinine Ratio 17.8 Glucose 108 Calcium 9.1 Triglycerides 89 Cholesterol 120 L LDL Cholesterol, Calc 60 HDL Cholesterol 42 Discharge Plan Discharge Plan Patient Disposition: Home Discharge comment: You were admitted with left eye blurry vision and numbness/tingling in left upper extremity. MRI showed acute stroke in the right occipital lobe. There was also severe narrowing or thrombus in the right vertebral artery. The carotid arteries looked okay. ECHO report is pending at time of discharge. Start Aspirin 81 mg daily. Continue on all other medications. Avoid any activities where you might fall and injure yourself or hit your head. Avoid any aspirin type pain relievers (Aleve, ibuprofen) but Tylenol is okay to take. Seek immediate medical attention if you have recurrent symptoms. Follow up with Dr Russell in the next week Discharge orders & Medications Prescriptions: New aspirin 81 mg tablet,delayed release (DR/EC) 81 mg PO DAILY Qty: 30 RF: 0 Continued atorvastatin 40 mg Tablet 40 mg PO BEDTIME RF: 0 allopurinol 300 mg Tablet 300 mg PO DAILY RF: 0 furosemide 20 mg Tablet 20 mg PO 2XW RF: 0 ramipril 10 mg Capsule 10 mg PO BID RF: 0 Centrum Silver Ultra Men's 300-600-300 mcg Tablet 1 tab PO DAILY RF: 0 Eliquis 5 mg Tablet 5 mg PO BID RF: 0 metoprolol tartrate 25 mg tablet 25 mg PO BID RF: 0 Follow up/Referrals: Duke Russell MD [Primary Care Provider] - Diet/Activity/Treatments Diet: Diet as Tolerated Discharge Data Primary Care Provider: Duke Russell V Attending Provider: Deb Ashley Admit Date/Time: 09/11/19 13:33 Quality VTE Deep Vein Thrombosis/Pulmonary Embolism Present on Admission: No
--- NOTE | 2019-09-12 15:45 | PC.NURSE ---
DC note: Dr Ashley in to see patient, DC orders given. All DC instructions, new med ASA and CVA teaching done. Pt aware to call Dr Russell's office to make follow up appointment. Spouse at side during DC teaching. Instructions given about home safety, increased risk of bleeding r/t blood thinners. Pt dressed self, gait steady, independent with ADL's. IV to RAC removed per protocol, pressure drsg in place. Tele DC'd. Pt and spouse express understanding, no questions or concerns prior to DC. I apologized for delay in DC due to shift change, as patient expressed urgency to leave hospital. Appears in good spirits, smiling and otherwise pleasant. Pt wheeled to ER entrance where spouse to take home to [place] via private car.
== END 2019-09-12 15:49 | disposition home or self-care (01) ==
LOC: ED 13:22 → AC 13:34
PROVIDERS: Nurse Practitioner Family; Admitting Provider Internal Medicine; Emergency Provider Emergency Medicine; PCP Internal Medicine; Referring Provider Internal Medicine; Visit Provider Internal Medicine
DX: I63.40 Cerebral infarction due to embolism of unspecified cerebral artery (principal); R29.818 Other symptoms and signs involving the nervous system; I48.20 Chronic atrial fibrillation, unspecified; Z79.01 Long term (current) use of anticoagulants; Z95.1 Presence of aortocoronary bypass graft; E78.5 Hyperlipidemia, unspecified; I10 Essential (primary) hypertension; E66.9 Obesity, unspecified; I65.03 Occlusion and stenosis of bilateral vertebral arteries
CPT/HCPCS: 36415; 70450; 70548; 70553; 80048; 80053; 80061; 85025; 85610; 85730; 92523; 93005; 93010; 93306; 94762; 96360; 96361; 97161; 97165; 99285; G0378; Q9957

== ENCOUNTER → 2020-02-27 14:36 | Outpatient (CLI) | payer MEDICARE, OTHER, SELFPAY ==
[2019-09-11 16:43] VITALS: BMI 36.8
[2020-02-27 15:58] LABS: Add Manual Diff / Slide Review NO; Basophils Absolute Auto 100 /uL (0-100); Basophils Percent Auto 0.8 % (0-2); Eosinophils Absolute Auto 200 /uL (0-450); Eosinophils Percent Auto 3.4 % (2-4); Hematocrit 41.6 % (41-53); Hemoglobin 13.7 g/dL (13.5-17.5); Lymphocytes Absolute Auto 1500 /uL (1100-4500); Lymphocytes Percent Auto 21.7 % (25-40); Mean Corpuscular Hemoglobin 29.9 PG (26-34); Mean Corpuscular Volume 90.5 fL (80-100); Monocytes Absolute Auto 600 /uL (0-900); Monocytes Percent Auto 8.8 % (3-14); Neutrophils Absolute Auto 4400 /uL (1500-7000); Neutrophils Percent Auto 65.3 % (50-75); Platelet Count 184 X10^3/uL (150-400); Red Cell Distribution Width 14.9 % (11.6-14.8); White Blood Cell Count 6.7 X10^3/uL (4.5-11.0)
[2020-02-27 16:08] LABS: Alanine Aminotransferase 34 IU/L (<50); Albumin 4.7 g/dL (3.5-5.0); Albumin Globulin Ratio 1.5 (1.0-2.8); Alkaline Phosphatase 45 U/L (38-126); Aspartate Aminotransferase 40 IU/L (17-59); BUN Creatinine Ratio 12.7 (6-22); Bilirubin Total 0.7 mg/dL (0.2-1.3); Blood Urea Nitrogen 13 mg/dL (9-20); Calcium 9.8 mg/dL (8.4-10.2); Carbon Dioxide 26 mmol/L (22-32); Chloride 102 mmol/L (98-107); Cholesterol 117 mg/dL (140-199); Estimated Glomerular Filt Rate > 60.0 mL/min (>60); Globulin 3.2 g/dL (1.7-4.1); Glucose 92 mg/dL (80-110); HDL Cholesterol 63 mg/dL (40-60); HEMOLYSIS < 15 (0-50); LDL Cholesterol Calculated 40 mg/dL (<100); Sodium 136 mmol/L (137-145); Total Protein 7.9 g/dL (6.3-8.2); Triglycerides 70 mg/dL (35-150)
== END ==
PROVIDERS: PCP Internal Medicine; Referring Provider Internal Medicine; Visit Provider Internal Medicine Cardiovascular Disease
DX: I10 Essential (primary) hypertension (principal); E78.5 Hyperlipidemia, unspecified
CPT/HCPCS: 36415; 80053; 80061; 85025

== ENCOUNTER → 2020-11-29 14:52 | Outpatient (ROUT) | payer MEDICARE, OTHER, SELFPAY ==
[2019-09-11 16:43] VITALS: BMI 36.8
[2020-11-29 16:34] LABS: Add Manual Diff / Slide Review NO; Basophils Absolute Auto 0 /uL (0-100); Basophils Percent Auto 0.5 % (0-2); Eosinophils Absolute Auto 300 /uL (0-450); Eosinophils Percent Auto 4.1 % (2-4); Hematocrit 44.7 % (41-53); Hemoglobin 14.8 g/dL (13.5-17.5); Lymphocytes Absolute Auto 1300 /uL (1100-4500); Lymphocytes Percent Auto 17.2 % (25-40); Mean Corpuscular Hemoglobin 29.4 PG (26-34); Mean Corpuscular Volume 89.2 fL (80-100); Monocytes Absolute Auto 700 /uL (0-900); Monocytes Percent Auto 9.2 % (3-14); Neutrophils Absolute Auto 5200 /uL (1500-7000); Platelet Count 175 X10^3/uL (150-400); Red Blood Cell Count 5.02 X10^6/uL (4.5-5.9); Red Cell Distribution Width 14.5 % (11.6-14.8); White Blood Cell Count 7.6 X10^3/uL (4.5-11.0)
[2020-11-29 16:43] LABS: Alanine Aminotransferase 24 IU/L (<50); Albumin 4.7 g/dL (3.5-5.0); Albumin Globulin Ratio 1.5 (1.0-2.8); Alkaline Phosphatase 57 U/L (38-126); Aspartate Aminotransferase 33 IU/L (17-59); BUN Creatinine Ratio 27.6 (6-22); Bilirubin Total 0.5 mg/dL (0.2-1.3); Blood Urea Nitrogen 24 mg/dL (9-20); Carbon Dioxide 24 mmol/L (22-32); Chloride 105 mmol/L (98-107); Cholesterol 156 mg/dL (140-199); Estimated Glomerular Filt Rate > 60.0 mL/min (>60); Globulin 3.1 g/dL (1.7-4.1); Glucose 100 mg/dL (80-110); HDL Cholesterol 89 mg/dL (40-60); HEMOLYSIS < 15 (0-50); LDL Cholesterol Calculated 52 mg/dL (<100); Potassium 4.5 mmol/L (3.4-5.1); Sodium 137 mmol/L (137-145); Total Protein 7.8 g/dL (6.3-8.2); Triglycerides 75 mg/dL (35-150); Uric Acid 7.9 mg/dL (3.5-8.5)
[2020-11-29 17:12] LABS: Prostate Specific Antigen 9.06 ng/mL (0.10-4.00)
[2020-11-29 17:19] LABS: TSH w/ Reflex to FT4 4.78 uIU/mL (0.47-4.68)
== END ==
PROVIDERS: PCP Internal Medicine; Visit Provider Internal Medicine
DX: N40.1 Benign prostatic hyperplasia with lower urinary tract symptoms (principal); M10.9 Gout, unspecified; I48.20 Chronic atrial fibrillation, unspecified; E78.2 Mixed hyperlipidemia
CPT/HCPCS: 80053; 80061; 84153; 84439; 84443; 84550; 85025

== ENCOUNTER → 2021-03-18 08:01 | Outpatient (CLI) | payer MEDICARE, OTHER, SELFPAY ==
[2019-09-11 16:43] VITALS: BMI 36.8
[2021-03-18 12:27] LABS: COVID19 -Nasal RAPID Negative (Negative)
== END ==
PROVIDERS: PCP Internal Medicine; Visit Provider Nurse Practitioner Family
DX: Z01.812 Encounter for preprocedural laboratory examination (principal); Z20.822 Contact with and (suspected) exposure to COVID-19
CPT/HCPCS: 87635; C9803

== ENCOUNTER 2021-03-19 07:11 | Day surgery (SDC) | payer MEDICARE, OTHER, SELFPAY ==
[2019-09-11 16:43] VITALS: BMI 36.8
[2021-03-19 08:12] VITALS: BP 149/82; PULSE 73; RESP 20; TEMP 36.4; O2SAT 97; BMI 32.4
[2021-03-19] MEDS: CATARACT EYE COMPOUND (10 DROPS/SYRINGE) 3 DROPS EYE-OP (08:16)
[2021-03-19] MEDS: PROPARACAINE 0.5% OPHTH SOL 2 DROPS EYE-OP (08:17)
--- NOTE | 2021-03-19 09:06 | PM.PREOP ---
Pre-operative Note Interval Note History & Physical reviewed/Exam performed by Physician: Yes Changes to H&P: No
--- NOTE | 2021-03-19 09:06 | PM.OP.1 ---
Operative Date/Time/Diagnoses Pre-op diagnosis: Nuclear cataract right eye Procedure & Clinicians Procedure: Cataract Surgery Same procedure as scheduled: Yes Surgeon: Wilmar Gamble Anesthesia Type: MAC +/- and Sedation Operative Notes Procedure in detail: Patient brought to the operating suite. Tetracaine drops placed in the right eye. Patient was prepped and draped in sterile manner. Wire lid speculum was placed in the eye. Betadine drops were placed on the eye. This was irrigated. Lidocaine jelly was placed on the eye. A paracentesis port was created with a side-port blade. 0.1 mL 1% preservative free lidocaine was injected into the anterior chamber. The anterior chamber was deepened with viscoelastic. 2.6 mm keratome was used to create a temporal clear corneal incision. Cystotome and Utrata forceps were used to create continuous tear capsulorrhexis. Balanced salt solution was used to hydro dissect the nucleus. The phacoemulsification handpiece was inserted and the nucleus was removed using the stop and chop technique. The irrigation aspiration handpiece was inserted and the remaining cortex was removed. Anterior chamber was deepened with viscoelastic. An Gomes DIB00 intraocular lens with a power of 22.0 was injected into the capsular bag. Irrigation aspiration handpiece was inserted and the remaining viscoelastic was removed. Incision was hydrated with balanced salt solution and found to be leak free with pressure with Weck-Caroline sponges. 0.1 mL Vigamox injected anterior chamber. 0.3 mL Kenalog 10 mg was injected subconjunctivally. Lid speculum was removed. The patient left the operating room in excellent condition. Complications: none Post-operative Condition: stable Disposition: same day surgery
[2021-03-19] MEDS: PHENYLEPHRINE/LIDOCAINE VIAL (OR) 0.2 ML EYE-OP (09:26)
[2021-03-19] MEDS: MOXIFLOXACIN INJ 4 MG/0.8 ML VIAL 0.5 MG EYE-OP (09:26)
[2021-03-19] MEDS: TRIAMCINOLONE 50 MG/5 ML VIAL INJ (09:26)
[2021-03-19] MEDS: HYALURONATE SODIUM 30 MG-10 MG/ML SYRINGES 1 BOX INTRAOCULA (09:26)
[2021-03-19] MEDS: TETRACAINE 0.5% OPHTH DROPS 4 ML 2 DROPS EYE-OP (09:27)
[2021-03-19] MEDS: BALANCED SALT IRRIG SOLN NO.2 500 ML, EPINEPHrine 1 MG IRR (09:27)
[2021-03-19] MEDS: LIDOCAINE 2% (GLYDO) 6 ML GEL TOP (09:27)
[2021-03-19 09:57] VITALS: BP 110/76; PULSE 77; RESP 20; TEMP 36.7; O2SAT 96
== END 2021-03-19 09:50 | disposition home or self-care (01) ==
PROVIDERS: PCP Internal Medicine; Referring Provider Ophthalmology; Visit Provider Ophthalmology
PROC: (CPT 66984; principal; 2021-03-19 09:15)
DX: H25.11 Age-related nuclear cataract, right eye (principal); I25.10 Atherosclerotic heart disease of native coronary artery without angina pectoris; I48.91 Unspecified atrial fibrillation; I10 Essential (primary) hypertension; E78.5 Hyperlipidemia, unspecified; E66.9 Obesity, unspecified; Z68.32 Body mass index [BMI] 32.0-32.9, adult
CPT/HCPCS: 66984; J0171; J2250; J3301

== ENCOUNTER → 2021-04-01 08:22 | Outpatient (CLI) | payer MEDICARE, OTHER, SELFPAY ==
[2019-09-11 16:43] VITALS: BMI 36.8
[2021-04-01 12:45] LABS: COVID19 -Nasal RAPID Negative (Negative)
== END ==
PROVIDERS: PCP Internal Medicine; Visit Provider Nurse Practitioner Family
DX: Z20.822 Contact with and (suspected) exposure to COVID-19 (principal)
CPT/HCPCS: 87635; C9803

== ENCOUNTER 2021-04-02 06:43 | Day surgery (SDC) | payer MEDICARE, OTHER, SELFPAY ==
[2019-09-11 16:43] VITALS: BMI 36.8
[2021-04-02 07:09] VITALS: BP 151/91; PULSE 99; RESP 16; TEMP 36.6; O2SAT 99; BMI 32.8
[2021-04-02] MEDS: PROPARACAINE 0.5% OPHTH SOL 2 DROPS EYE-OP (07:18)
[2021-04-02] MEDS: CATARACT EYE COMPOUND (10 DROPS/SYRINGE) 3 DROPS EYE-OP (07:18)
--- NOTE | 2021-04-02 08:35 | PM.PREOP ---
Pre-operative Note Interval Note History & Physical reviewed/Exam performed by Physician: Yes Changes to H&P: No
--- NOTE | 2021-04-02 08:36 | PM.OP.1 ---
Operative Date/Time/Diagnoses Pre-op diagnosis: Nuclear Cataract Left eye Post-op diagnosis: same Procedure & Clinicians Same procedure as scheduled: Yes Surgeon: Wilmar Gamble Anesthesia Type: MAC +/- and Sedation Operative Notes Procedure in detail: Patient brought to the operating suite. Tetracaine drops placed in the left eye. Patient was prepped and draped in sterile manner. Wire lid speculum was placed in the eye. Betadine drops were placed on the eye. This was irrigated. Lidocaine jelly was placed on the eye. A paracentesis port was created with a side-port blade. 0.1 mL 1% preservative free lidocaine was injected into the anterior chamber. The anterior chamber was deepened with viscoelastic. 2.6 mm keratome was used to create a temporal clear corneal incision. Cystotome and Utrata forceps were used to create continuous tear capsulorrhexis. Balanced salt solution was used to hydro dissect the nucleus. The phacoemulsification handpiece was inserted and the nucleus was removed using the stop and chop technique. The irrigation aspiration handpiece was inserted and the remaining cortex was removed. Anterior chamber was deepened with viscoelastic. An Gomes DIB00 intraocular lens with a power of 22.0 was injected into the capsular bag. Irrigation aspiration handpiece was inserted and the remaining viscoelastic was removed. Incision was hydrated with balanced salt solution and found to be leak free with pressure with Weck-Caroline sponges. 0.1 mL Vigamox injected anterior chamber. 0.3 mL Kenalog 10 mg was injected subconjunctivally. Lid speculum was removed. The patient left the operating room in excellent condition. Complications: none Post-operative Condition: stable Disposition: same day surgery
[2021-04-02] MEDS: LIDOCAINE 2% (GLYDO) 6 ML GEL TOP (08:57)
[2021-04-02] MEDS: HYALURONATE SODIUM 30 MG-10 MG/ML SYRINGES 1 BOX INTRAOCULA (08:57)
[2021-04-02] MEDS: MOXIFLOXACIN INJ 4 MG/0.8 ML VIAL 0.5 MG EYE-OP (08:58)
[2021-04-02] MEDS: TETRACAINE 0.5% OPHTH DROPS 4 ML 2 DROPS EYE-OP (08:58)
[2021-04-02] MEDS: PHENYLEPHRINE/LIDOCAINE VIAL (OR) 0.2 ML EYE-OP (08:58)
[2021-04-02] MEDS: TRIAMCINOLONE 50 MG/5 ML VIAL INJ (08:59)
[2021-04-02] MEDS: BALANCED SALT IRRIG SOLN NO.2 500 ML, EPINEPHrine 1 MG IRR (09:00)
[2021-04-02 09:10] VITALS: BP 148/89; PULSE 88; RESP 16; O2SAT 99
== END 2021-04-02 09:17 | disposition home or self-care (01) ==
PROVIDERS: PCP Internal Medicine; Referring Provider Ophthalmology; Visit Provider Ophthalmology
PROC: (CPT 66984; principal; 2021-04-02 08:45)
DX: H25.12 Age-related nuclear cataract, left eye (principal); I25.10 Atherosclerotic heart disease of native coronary artery without angina pectoris; I48.91 Unspecified atrial fibrillation; I10 Essential (primary) hypertension; E78.5 Hyperlipidemia, unspecified
CPT/HCPCS: 66984; J0171; J2250; J3301

== ENCOUNTER 2022-06-19 09:03 | Emergency (ER) | payer MEDICARE, OTHER, SELFPAY ==
[2019-09-11 16:43] VITALS: BMI 36.8
[2022-06-19] VITALS (15 sets, daily range): BP systolic 138–183; BP diastolic 75–114; PULSE 79–101; RESP 14–21; TEMP 36.6; O2SAT 92–98; BMI 37.5
--- NOTE | 2022-06-19 09:23 | DI.RAD.S_ITS ---
PROCEDURE: XR CHEST 1V INDICATIONS: chest pain TECHNIQUE: One view of the chest was acquired. COMPARISON: [facility], , CHEST 1 VIEW, 07/07/2016, 17:09. FINDINGS: Surgical changes and devices: Patient is status post median sternotomy and CABG. As before, the superior to sternotomy wires are fractured. Lungs and pleura: Lungs are clear. No pleural effusions or pneumothorax. Mediastinum: Mediastinal contours appear normal. Heart size is enlarged, as before. Bones and chest wall: No suspicious bony lesions. Overlying soft tissues appear unremarkable. IMPRESSION: Stable cardiomegaly. No acute pulmonary findings. Fractured superior sternal wires as before. Dictated by: Pati Carrillo M.D. on 06/19/2022 at 9:55 Approved by: Pati Carrillo M.D. on 06/19/2022 at 9:55
--- NOTE | 2022-06-19 09:38 | ED.GENADULT ---
HPI - General Adult General Chief complaint: Hypertension Stated complaint: high BP/dizzy spells t-1 Time Seen by Provider: 06/19/22 09:24 Source: patient Mode of arrival: Ambulatory History of Present Illness HPI narrative: 77-year-old male former smoker with history of AFib on Eliquis, coronary artery disease, sleep apnea and prior cerebrovascular disease presents with a chief complaint of elevated blood pressure over the past 24 hours or so and associated dizzy spells. He denies any trauma or head injury, nor has he had headache, fever, chills or neck pain. He does state he is had some nasal congestion and perhaps a bit of a sore throat over the past few days and had been taking [id number] cough and cold medication and only last night switch to a blood pressure safe variety. He denies any change in his medications, dosing or dietary change. He denies blurred vision, trouble speech. He has no chest pain or shortness of breath. He denies any numbness, tingling or weakness. He states that the dizziness he had been having included some lightheaded and spinning sensation that seemed to be worse when he turned his head. Related Data Home Medications Medication Instructions Recorded Confirmed furosemide 20 mg tablet 20 mg PO 2XW 09/11/19 05/21/22 [id number] acid 300 1 tab PO DAILY 09/11/19 05/21/22 mcg-lycopene 600 mcg-lutein 300 mcg tablet (Centrum Silver Ultra Men's) ramipril 10 mg capsule 10 mg PO BID 09/11/19 05/21/22 carvedilol 6.25 mg tablet 6.25 mg PO BID 03/26/22 05/21/22 rivaroxaban 20 mg tablet (Xarelto) 20 mg PO DAILY 03/26/22 05/21/22 rosuvastatin 40 mg tablet 40 mg PO BEDTIME 03/26/22 05/21/22 tamsulosin 0.4 mg capsule 0.8 mg PO DAILY 03/26/22 05/21/22 Previous Rx's Medication Instructions Recorded aspirin 81 mg tablet,delayed 81 mg PO DAILY #30 tabs 09/12/19 release Parking Permit... #1 ea 03/26/22 Allergies Allergy/AdvReac Type Severity Reaction Status Date / Time No Known Drug Allergies Allergy Verified 06/19/22 09:18 Review of Systems Review of Systems Narrative: GENERAL: See HPI HEENT: Denies sinus pain, ear pain, sore throat, difficulty swallowing, dizziness. RESPIRATORY: Denies dyspnea, cough, wheezing, hemoptysis, sputum. CARDIOVASCULAR: Denies chest pain, palpitations, orthopnea, edema, GASTROINTESTINAL: Denies nausea, vomiting, abdominal pain, diarrhea, constipation, melena. : Denies dysuria, frequency, incontinence, hematuria, urinary retention. MUSCULOSKELETAL: denies weakness, joint pain, or bony pain SKIN: Denies rash, skin lesions, or other NEUROLOGIC: See HPI PSYCHIATRIC: No concerning psychosocial issues. 12 point review of systems is negative except for those stated above Patient History Medical History Advanced directives, counseling/discussion Arthritis BPH w urinary obs/LUTS CAD (coronary artery disease) Cerebrovascular disease Chronic anticoagulation Enlarged prostate Essential hypertension Gout Medicare annual wellness visit, initial Mixed hyperlipidemia Obstructive sleep apnea Paroxysmal atrial fibrillation Primary osteoarthritis involving multiple joints Surgical History Hx of CABG Family History Sister CVA (cerebral vascular accident) Mother Cancer Father Myocardial infarction Brother Myocardial infarction Social History household members: spouse Smoking Status: Former smoker alcohol intake: current Smoking Status: Former smoker alcohol intake frequency: holidays/special occasions only Substance Use Type: does not use Exam Narrative Exam Narrative: GENERAL: [77] year old patient appears stated age. Well-developed patient, in mild distress. HEAD: Atraumatic. Normocephalic. EYES: Pupils equal round and reactive. Extraocular motions intact. No scleral icterus. No injection or drainage. No nystagmus ENT: Nose without bleeding, purulent drainage. Throat without erythema, tonsillar hypertrophy or exudate. Airway patent. NECK: Trachea midline. Non tender CARDIOVASCULAR: Regular rate and rhythm without murmurs, gallops, or rubs. RESPIRATORY: Clear to auscultation. Breath sounds equal bilaterally. No wheezes, rales, or rhonchi. GASTROINTESTINAL: Abdomen soft, non-tender, nondistended. EXTREMITIES: No edema or joint tenderness. BACK: Nontender without deformity or crepitance. No flank tenderness. NEURO: AOx3. Cranial nerves 2-12 intact SKIN: No rash or erythema of visible areas Initial Vital Signs Initial Vital Signs: Vital Signs Temperature 97.9 F 06/19/22 09:13 Pulse Rate 88 06/19/22 09:13 Respiratory Rate 16 06/19/22 09:13 Blood Pressure 181/114 H 06/19/22 09:13 Pulse Oximetry 95 06/19/22 09:13 Oxygen Delivery Method 06/19/22 09:13 Course Orders Ordered: Discontinued Medications Labetalol HCl (Labetalol 20 Mg/4 Ml Syringe) 10 mg IV NOW ONE Stop: 06/19/22 09:46 Last Admin: 06/19/22 11:39 Dose: Not Given Documented By: ERNIE Vital Signs Vital signs: Vital Signs - 8 hr 06/19/22 09:13 Temperature 97.9 F Pulse Rate 88 Respiratory Rate 16 Blood Pressure 181/114 H Pulse Oximetry 95 Oxygen Delivery Method Room Air Medical Decision Making Lab Data Result diagrams: 06/19/22 09:34 06/19/22 09:23 Labs: Lab Results 06/19/22 06/19/22 06/19/22 Range/Units 09:23 09:34 09:34 WBC 6.4 (4.5-11.0) X10^3/uL RBC 5.07 (4.5-5.9) X10^6/uL Hgb 14.3 (13.5-17.5) g/dL Hct 43.2 (41-53) % MCV 85.3 (80-100) fL MCH 28.3 (26-34) PG MCHC 33.2 (30-36) % RDW 14.8 (11.6-14.8) % Plt Count 193 (150-400) X10^3/uL Neut % (Auto) 67.0 (50-75) % Lymph % (Auto) 18.3 L (25-40) % Kinney % (Auto) 10.1 (3-14) % Eos % (Auto) 4.0 (2-4) % Baso % (Auto) 0.6 (0-2) % Neut # (Auto) 4300 (5066-8820) /uL Lymph # (Auto) 1200 (9878-4654) /uL Kinney # (Auto) 600 (0-900) /uL Eos # (Auto) 300 (0-450) /uL Baso # (Auto) 0 (0-100) /uL PT 21.0 H (10.1-12.7) SECONDS INR 1.8 H (0.9-1.3) APTT 40 H (26-36) SECONDS Sodium 138 (137-145) mmol/L Potassium 4.2 (3.4-5.1) mmol/L Chloride 101 (98-107) mmol/L Carbon Dioxide 26 (22-32) mmol/L BUN 17 (9-20) mg/dL Creatinine 0.96 (0.66-1.25) mg/dL Estimated GFR > 60 (>60) mL/min BUN/Creatinine Ratio 17.7 (6-22) Glucose 104 (80-110) mg/dL Calcium 9.4 (8.4-10.2) mg/dL Magnesium 1.7 (1.6-2.3) mg/dL Total Bilirubin 0.6 (0.2-1.3) mg/dL AST 29 (17-59) IU/L ALT 24 (<50) IU/L Alkaline Phosphatase 42 (38-126) U/L Total Creatine Kinase 123 (55-170) U/L CK-MB (CK-2) 1.72 (<2.37) ng/mL CK-MB (CK-2) Rel Index 1.4 L (1.5-5.0) % Troponin I < 0.012 (0.01-0.034) ng/mL Total Protein 8.3 H (6.3-8.2) g/dL Albumin 4.6 (3.5-5.0) g/dL Globulin 3.7 (1.7-4.1) g/dL Albumin/Globulin Ratio 1.2 (1.0-2.8) Lipase 101 (23-300) U/L SARS-CoV-2 (PCR) (Negative) Influenza A (RT-PCR) (NEGATIVE) Influenza B (RT-PCR) (NEGATIVE) RSV (PCR) (Negative) 06/19/22 Range/Units 09:52 WBC (4.5-11.0) X10^3/uL RBC (4.5-5.9) X10^6/uL Hgb (13.5-17.5) g/dL Hct (41-53) % MCV (80-100) fL MCH (26-34) PG MCHC (30-36) % RDW (11.6-14.8) % Plt Count (150-400) X10^3/uL Neut % (Auto) (50-75) % Lymph % (Auto) (25-40) % Kinney % (Auto) (3-14) % Eos % (Auto) (2-4) % Baso % (Auto) (0-2) % Neut # (Auto) (7574-6679) /uL Lymph # (Auto) (0557-6659) /uL Kinney # (Auto) (0-900) /uL Eos # (Auto) (0-450) /uL Baso # (Auto) (0-100) /uL PT (10.1-12.7) SECONDS INR (0.9-1.3) APTT (26-36) SECONDS Sodium (137-145) mmol/L Potassium (3.4-5.1) mmol/L Chloride (98-107) mmol/L Carbon Dioxide (22-32) mmol/L BUN (9-20) mg/dL Creatinine (0.66-1.25) mg/dL Estimated GFR (>60) mL/min BUN/Creatinine Ratio (6-22) Glucose (80-110) mg/dL Calcium (8.4-10.2) mg/dL Magnesium (1.6-2.3) mg/dL Total Bilirubin (0.2-1.3) mg/dL AST (17-59) IU/L ALT (<50) IU/L Alkaline Phosphatase (38-126) U/L Total Creatine Kinase (55-170) U/L CK-MB (CK-2) (<2.37) ng/mL CK-MB (CK-2) Rel Index (1.5-5.0) % Troponin I (0.01-0.034) ng/mL Total Protein (6.3-8.2) g/dL Albumin (3.5-5.0) g/dL Globulin (1.7-4.1) g/dL Albumin/Globulin Ratio (1.0-2.8) Lipase (23-300) U/L SARS-CoV-2 (PCR) Negative (Negative) Influenza A (RT-PCR) Flu a negative (NEGATIVE) Influenza B (RT-PCR) Flu b negative (NEGATIVE) RSV (PCR) Negative (Negative) MDM Narrative Medical decision making narrative: 77-year-old male former smoker with history of AFib on Eliquis, coronary artery disease, sleep apnea and prior cerebrovascular disease presents with a chief complaint of elevated blood pressure over the past 24 Multiple etiologies for patient's symptoms considered including: [Hypertension, stroke, intracranial hemorrhage, electrolyte abnormality, viral upper respiratory infection versus other Prior charts reviewed from primary care office in March and ED visit from September 2019 Patient history and Physical very reassuring, symptoms were much more significant yesterday when his blood pressure was high and minimal symptoms that were present on arrival resolved with improvement in blood pressure. This temporal relationship can not be ignored in his thought most likely etiology of symptoms CT head ordered given elevated blood pressure dizziness and blood thinners, no intracranial hemorrhage or other significant acute findings noted Labs reviewed and there is no evidence of infection, anemia, electrolyte disturbance or kidney injury. Respiratory swabs negative for flu, COVID and RSV Patient's symptoms improved over duration of stay with above-stated therapies. Findings and discharge diagnosis discussed with patient/family followed by verbalization of understanding Return precautions discussed with patient/family whom verbalize understanding. Discharge Plan Departure Patient Disposition: Home Clinical Impression: Essential hypertension Instructions: DI for High Blood Pressure Activity Restrictions/Additional Instructions: *You have been diagnosed with [hypertension] *What to do: *Please continue to take your regular medications as directed. [ ] New medication prescriptions sent to your pharmacy: [ ] [ ] New medication written as a paper prescription [ ] No new medications given *Please follow up with your primary care provider in 2-3 days, call for an appointment. Let them know you were seen in the Emergency Department and that we ask that you be seen in follow up. We will electronically transmit a record of today's note if your PCP is in our system *Return to Emergency Department if you should have any new, worsening or concerning symptoms, such as [fever greater than 101 F, shaking chills, worsening pain, persistent vomiting or other bothersome symptoms] Prescriptions: No Action rosuvastatin 40 mg tablet 40 mg PO BEDTIME Label Comments: TAKE 1 TABLET BY MOUTH EVERY NIGHT FOR HIGH CHOLESTEROL tamsulosin 0.4 mg capsule 0.8 mg PO DAILY Xarelto 20 mg tablet 20 mg PO DAILY carvedilol 6.25 mg tablet 6.25 mg PO BID (DME) Parking Permit... See Rx Instructions .Route .MEDPPLY Qty: 1 0RF Rx Instructions: As directed furosemide 20 mg Tablet 20 mg PO 2XW ramipril 10 mg Capsule 10 mg PO BID Centrum Silver Ultra Men's 300-600-300 mcg Tablet 1 tab PO DAILY aspirin 81 mg tablet,delayed release (DR/EC) 81 mg PO DAILY Qty: 30 0RF Referrals: Duke Russell MD [Primary Care Provider] - Visit Report Forms: Patient Portal/API
--- NOTE | 2022-06-19 09:44 | DI.CT.S_ITS ---
PROCEDURE: CT HEAD/BRAIN WO CON INDICATIONS: dizzy, HTN emergency, on thinners TECHNIQUE: Noncontrast 4.5 mm thick angled axial sections acquired from the foramen magnum to the vertex, with coronal and sagittal reformats. For radiation dose reduction, the following was used: automated exposure control, adjustment of mA and/or kV according to patient size. COMPARISON: [facility], CT, CT STROKE, 09/11/2019, 11:37. FINDINGS: Image quality: Excellent. CSF spaces: Basal cisterns are patent. No extra-axial fluid collections. The ventricles are symmetric in size and shape. Brain: Old right occipital lobe infarct is noted with encephalomalacia. Old lacunar infarcts are also seen in bilateral basal ganglia. There is also suggestion of old infarction involving right cerebellum with encephalomalacia new since 2019 study. No intracranial bleeds or masses. There is cerebral volume loss for age, with resultant ventricular and sulcal prominence. There are periventricular and deep white matter chronic small vessel ischemic changes. There is intracranial internal carotid artery atherosclerosis. Skull and face: Calvarium and visualized facial bones appear intact, without suspicious lesions. Sinuses: Visualized sinuses and mastoids are clear. IMPRESSION: 1. No definite CT evidence of acute infarction. No acute intracranial bleed or midline shift. No significant mass effect. 2. Old infarctions in bilateral basal ganglia, right occipital lobe and right cerebellum with encephalomalacia. Dictated by: Francis Herrera M.D. on 06/19/2022 at 10:04 Approved by: Francis Herrera M.D. on 06/19/2022 at 10:09
[2022-06-19 09:53] LABS: Add Manual Diff / Slide Review NO; Basophils Absolute Auto 0 /uL (0-100); Basophils Percent Auto 0.6 % (0-2); Eosinophils Absolute Auto 300 /uL (0-450); Hematocrit 43.2 % (41-53); Hemoglobin 14.3 g/dL (13.5-17.5); Lymphocytes Absolute Auto 1200 /uL (1100-4500); Lymphocytes Percent Auto 18.3 % (25-40); Mean Corpuscular HGB Conc 33.2 % (30-36); Mean Corpuscular Hemoglobin 28.3 PG (26-34); Mean Corpuscular Volume 85.3 fL (80-100); Monocytes Absolute Auto 600 /uL (0-900); Monocytes Percent Auto 10.1 % (3-14); Neutrophils Absolute Auto 4300 /uL (1500-7000); Platelet Count 193 X10^3/uL (150-400); Red Blood Cell Count 5.07 X10^6/uL (4.5-5.9); Red Cell Distribution Width 14.8 % (11.6-14.8); White Blood Cell Count 6.4 X10^3/uL (4.5-11.0)
[2022-06-19 09:57] LABS: INR 1.8 (0.9-1.3)
[2022-06-19 09:59] LABS: PTT Partial Thromboplastin Tim 40 SECONDS (26-36)
[2022-06-19 10:03] LABS: Alanine Aminotransferase 24 IU/L (<50); Albumin 4.6 g/dL (3.5-5.0); Albumin Globulin Ratio 1.2 (1.0-2.8); Alkaline Phosphatase 42 U/L (38-126); Aspartate Aminotransferase 29 IU/L (17-59); BUN Creatinine Ratio 17.7 (6-22); Bilirubin Total 0.6 mg/dL (0.2-1.3); Blood Urea Nitrogen 17 mg/dL (9-20); Calcium 9.4 mg/dL (8.4-10.2); Carbon Dioxide 26 mmol/L (22-32); Chloride 101 mmol/L (98-107); Creatine Kinase 123 U/L (55-170); Estimated Glomerular Filt Rate > 60 mL/min (>60); Globulin 3.7 g/dL (1.7-4.1); Glucose 104 mg/dL (80-110); HEMOLYSIS < 15 (0-50); Lipase 101 U/L (23-300); Magnesium 1.7 mg/dL (1.6-2.3); Potassium 4.2 mmol/L (3.4-5.1); Sodium 138 mmol/L (137-145); Total Protein 8.3 g/dL (6.3-8.2)
[2022-06-19 10:14] LABS: Troponin I < 0.012 ng/mL (0.01-0.034)
[2022-06-19 10:18] LABS: CKMB % Relative Index 1.4 % (1.5-5.0); Creatine Kinase MB 1.72 ng/mL (<2.37)
[2022-06-19 11:06] LABS: COVID-19 CEPHEID 4-PLEX PCR Negative (Negative); Influenza A - CEPHEID Flu A NEGATIVE (NEGATIVE); Influenza B - CEPHEID Flu B NEGATIVE (NEGATIVE); Respiratory Syncytial Virus Negative (Negative)
== END 2022-06-19 11:45 | disposition home or self-care (01) ==
PROVIDERS: Emergency Provider Emergency Medicine; PCP Internal Medicine
DX: I10 Essential (primary) hypertension (principal); R42 Dizziness and giddiness; Z79.01 Long term (current) use of anticoagulants; Z87.891 Personal history of nicotine dependence
CPT/HCPCS: 0241U; 36415; 70450; 71045; 80053; 82550; 82553; 83690; 83735; 84484; 85025; 85610; 85730; 93005; 93010; 99283; 99284

== ENCOUNTER → 2023-07-31 14:29 | Outpatient (CLI) | payer MEDICARE, OTHER, SELFPAY ==
[2019-09-11 16:43] VITALS: BMI 36.8
--- NOTE | 2023-07-31 | DI.ECHO.S_ITS ---
[place] [facility]---------+ [facility] +---------+ : : [address] : [address] [place] : : : : [id number] : : : : Phone: [phone]+ Echocardiogram Report + + :Name: SCOTT RAZA Study Date: 07/31/2023 Height: 67 in : :[facility] ReadingLocation: Weight: 223 lb : : Gender: Male BSA: 2.1 m2 : :: 1945 Age: 78 yrs BP: 132/86 mmHg: :Reason For Study: NONRHEUMATIC AORTIC STENOSIS : :Ordering Physician: AIDEN, : :MEAGAN Performed By: Emmett Bocanegra : :Referring: MEAGAN MILAN : + + Interpretation Summary 1) Mildly increased left ventricular thickness (concentric) with normal size and normal systolic function (EF 55-60%). 2) True apex is hypokinetic. 3) The right ventricle grossly appears normal in size with probable normal systolic function. 4) There is mild aortic stenosis (valve area 1.9cm2, mean gradient 17mmHg, severity ratio 0.35). 5) Compared to the Echo done 09/12/2019, apical hypokinesis is new on this study. Procedure: A two-dimensional transthoracic echocardiogram with color flow and Doppler was performed. The study quality was technically difficult. A contrast injection of Definity was performed to improve assessment of LV function. Comparison is made with the echocardiogram of 09/12/19. The patient was in normal sinus rhythm during the exam. Left Ventricle: The left ventricle is normal in size. There is mild-moderate concentric left ventricular hypertrophy. The ejection fraction is estimated to be 55-60%. True apex is hypokinetic. Right Ventricle: The right ventricle is not well visualized. The right ventricle grossly appears normal in size with probable normal systolic function. Atria: The left atrial size is normal. Right atrium not well visualized. Mitral Valve: The mitral valve is normal in structure and function. There is no mitral valve stenosis. There is trace mitral regurgitation. Aortic Valve: The aortic valve is trileaflet. The aortic valve is moderately calcified. There is mild aortic stenosis. The peak aortic velocity is 2.79 m/sec. The aortic valve mean gradient is 17 mmHg. No aortic regurgitation is present. Tricuspid Valve: The tricuspid valve is not well visualized. There is no tricuspid stenosis. No tricuspid regurgitation. Pulmonic Valve: The pulmonic valve is not well visualized. There is no pulmonic valvular stenosis. There is a trace or physiologic amount of pulmonic regurgitation. Great Vessels: The aortic root is mildly dilated. The ascending aorta is mild-moderately enlarged. The inferior vena cava appeared normal. Pericardium/ Pleura There is no pericardial effusion. There is no pleural effusion. MMode/2D Measurements & Calculations LVIDd: 5.3 cm LVOT diam: 2.7 cm LVIDs: 3.6 cm Ao root diam: 3.8 cm FS: 32.7 % asc Aorta Diam: 3.8 cm IVSd: 1.1 cm LVPWd: 1.1 cm LV nunes. diameter/BSA (cm/m^2): 2.5 LV sys. diameter/BSA (cm/m^2): 1.7 LA A2 area: 37.6 cm2 IVC diam: 1.9 cm LA A4 area: 39.8 cm2 LA length (vol): 8.1 cm LA vol: 156.0 ml LA vol index: 73.7 ml/m2 Doppler Measurements & Calculations Ao V2 max: 279.1 cm/sec LVOT Max Anthony: 91.6 cm/sec Ao V2 mean: 195.4 cm/sec LV V1 max P.2 mmHg Ao max P.7 mmHg LV V1 VTI: 20.3 cm Ao mean P.0 mmHg JOSE(I,D): 2.0 cm2 Ao V2 VTI: 58.0 cm JOSE(V,D): 1.9 cm2 sev ratio: 0.35 JOSE indexed to BSA (cm^2/m^2): 0.96 MV E max anthony: 128.0 cm/sec PA V2 max: 115.2 cm/sec MV A max anthony: 31.0 cm/sec PA V2 mean: 75.9 cm/sec MV E/A: 4.1 PA mean P.6 mmHg Med Peak E' Anthony: 6.9 cm/sec PA pr(Accel): 46.5 mmHg E/E' med: 18.7 Lat Peak E' Anthony: 10.6 cm/sec E/E' lat: 12.1 E/e' average: 15.4 MV dec time: 0.20 sec SV(LVOT): 117.8 ml Reading Physician:10:[id number] AM
== END ==
PROVIDERS: PCP Internal Medicine; Referring Provider Internal Medicine Cardiovascular Disease; Visit Provider Internal Medicine Cardiovascular Disease
DX: I35.0 Nonrheumatic aortic (valve) stenosis (principal); I77.810 Thoracic aortic ectasia; I77.89 Other specified disorders of arteries and arterioles
CPT/HCPCS: 93306; Q9957

== ENCOUNTER → 2024-12-26 17:06 | Outpatient (CLI) | payer MEDICARE, OTHER, SELFPAY ==
[2024-12-13 14:00] VITALS: BMI 36.8
[2024-12-26 17:51] LABS: Hematocrit 39.6 % (41-53); Hemoglobin 13.1 g/dL (13.5-17.5); Mean Corpuscular Hemoglobin 29.6 PG (26-34); Mean Corpuscular Volume 89.8 fL (80-100); Platelet Count 201 X10^3/uL (150-400); Red Blood Cell Count 4.41 X10^6/uL (4.5-5.9); Red Cell Distribution Width 14.6 % (11.6-14.8); White Blood Cell Count 6.2 X10^3/uL (4.5-11.0)
[2024-12-26 18:06] LABS: Alanine Aminotransferase 27 IU/L (<50); Albumin 4.6 g/dL (3.5-5.0); Albumin Globulin Ratio 1.5 (1.0-2.8); Alkaline Phosphatase 76 U/L (38-126); Aspartate Aminotransferase 34 IU/L (17-59); BUN Creatinine Ratio 19.8 (6-22); Bilirubin Total 0.6 mg/dL (0.2-1.3); Blood Urea Nitrogen 21 mg/dL (9-20); Calcium 9.2 mg/dL (8.4-10.2); Carbon Dioxide 25 mmol/L (22-32); Chloride 105 mmol/L (98-107); Cholesterol 135 mg/dL (140-199); Estimated Glomerular Filt Rate > 60 mL/min (>60); Glucose 95 mg/dL (70-99); HDL Cholesterol 61 mg/dL (40-60); HEMOLYSIS < 15 (0-50); LDL Cholesterol Calculated 46 mg/dL (<100); Potassium 4.3 mmol/L (3.4-5.1); Sodium 139 mmol/L (137-145); Total Protein 7.6 g/dL (6.3-8.2); Triglycerides 142 mg/dL (35-150)
[2024-12-26 18:37] LABS: Prostate Specific Antigen 7.36 ng/mL (0.10-4.00)
[2024-12-26 18:47] LABS: TSH w/ Reflex to FT4 3.75 uIU/mL (0.47-4.68)
== END ==
LOC: LAB 17:07
PROVIDERS: PCP Internal Medicine; Referring Provider Internal Medicine; Visit Provider Internal Medicine
DX: I48.0 Paroxysmal atrial fibrillation (principal); E78.2 Mixed hyperlipidemia; N40.1 Benign prostatic hyperplasia with lower urinary tract symptoms; N13.8 Other obstructive and reflux uropathy
CPT/HCPCS: 36415; 80053; 80061; 84153; 84443; 85027